=== PATIENT | female | born 1950 | race Caucasian/White ===

== ENCOUNTER → 2018-06-09 | Outpatient (CLI) | payer MEDICAID ==
[~2018-06-09] MED LIST: ADV1DS IH; ALBU17AE3 INH; ASPI-875 PO; B12 IM; CARV12.53 PO; CARV6.252; CINN500C7 PO; CYAN100053 IJ; ESTR0.3T; FURO20TA4 PO; HCT25T PO; HYDR1TAB PO; HYDR50TA3 PO; KCL10CCR; LEVO100T4; LEVO75TA6 PO; LOSA50TA6 PO; LVT.025T PO; METO2.5T; METO25TA2 PO; PITA4TAB2 PO; PNT40TEC PO; POTA10TA36 PO; RANI300T4 PO; RED600TA PO; RLX60T PO; SITA100T PO; SLMFT1E; SPIR50TA27 PO; SPRN25T PO; TORS20TA2 PO; allergy shots INJ
--- NOTE | 2018-06-09 19:04 | Diagnostic Imaging Report ---
INDICATION: Right shoulder pain for three weeks with no known injury. FINDINGS: Three views of the right humerus were obtained which show no fracture, dislocation or other acute bony abnormality. There are mild degenerative changes at the glenohumeral and AC joints. IMPRESSION: No acute abnormality is seen. Dictated by: Dictated on workstation # [id number]
== END ==
LOC: RAD FS 16:22
PROVIDERS: ATTEND Family Medicine
DX: M79.601 Pain in right arm (principal); M25.511 Pain in right shoulder
CPT/HCPCS: 73060

== ENCOUNTER → 2019-02-20 | Outpatient (CLI) | payer MEDICARE, MEDICAID ==
--- NOTE | 2019-02-20 11:54 | Diagnostic Imaging Report ---
Indication: Right ankle pain 3 views the right ankle show soft tissue swelling. No fracture or dislocation. IMPRESSION: Negative right ankle Dictated by: Dictated on workstation # [id number]
--- NOTE | 2019-02-20 11:57 | Diagnostic Imaging Report ---
Indication: Right foot pain 3 views of the right foot show no fracture, dislocation or other acute abnormalities. IMPRESSION: Negative right foot Dictated by: Dictated on workstation # [id number]
== END ==
LOC: RAD FS 11:22
PROVIDERS: ATTEND Nurse Practitioner Family
DX: S99.911A Unspecified injury of right ankle, initial encounter (principal)
CPT/HCPCS: 73610; 73630

== ENCOUNTER 2019-05-19 10:55 | Emergency (ER) | payer MEDICARE, MEDICAID ==
[~2019-05-19] VITALS: Ht 154.9 cm; Wt 131.8 kg
[2019-05-19 11:23] LABS: BACTERIA,URINE MODERATE /HPF; BILIRUBIN,URINE NEGATIVE (NEGATIVE); CLARITY,URINE CLEAR; COLOR,URINE YELLOW; GLUCOSE, URINE (UA) NEGATIVE (NEGATIVE); KETONES,URINE NEGATIVE (NEGATIVE); LEUKOCYTE ESTERASE ,URINE NEGATIVE (NEGATIVE); NITRITE,URINE NEGATIVE (NEGATIVE); PH,URINE 6.5 (5-9); PROTEIN,URINE NEGATIVE (NEGATIVE); WBC,URINE 25-50 /HPF
[2019-05-19 11:24] LABS: SQUAMOUS EPITHELIAL CELL,UR 25-50 /HPF
--- NOTE | 2019-05-19 11:26 | ED General ---
General Stated Complaint: ABD PAIN History of Present Illness Date Seen by Provider: May 19, 2019 Time Seen by Provider: 11:23 Initial Comments Patient presenting to emergency department for evaluation of right flank pain reading towards the right upper and lower abdomen that has been present for the past 3-4 days. Patient says it has been a constant aching pain that can become sharp at times. She says it gets worse with movements and eating. She denies any fever cough shortness of breath chest pain vomiting diarrhea dysuria or hematuria. She does have nausea and constipation with a feeling of rectal pressure. She says she has still had bowel movements the past 2 days however. She has had a cholecystectomy and appendectomy. She says that she has a frequent history of getting diverticulitis and it has never been on the left side and it is only on the right. She said she has had at least 5 times in surgeons have considered taking out part of her bowel on the next flare of diverticulitis. She appears uncomfortable but is nontoxic with normal vital signs. She says she is allergic to multiple pain and nausea medicines but she said she could take Toradol and Zofran. Allergies and Home Medications Allergies Coded Allergies: Amoxicillin (Unverified Allergy, Mild, 07/17/08) Aspirin (Unverified Allergy, Mild, 07/17/08) Butorphanol (Unverified Allergy, Mild, 07/17/08) Cefadroxil (Unverified Allergy, Mild, 07/17/08) Celecoxib (Unverified Allergy, Mild, 07/17/08) Ciprofloxacin (Unverified Allergy, Mild, 07/17/08) Clopidogrel (Unverified Allergy, Mild, 07/17/08) Codeine (Unverified Allergy, Mild, 07/17/08) Diclofenac (Unverified Allergy, Mild, 07/17/08) Erythromycin Base (Unverified Allergy, Mild, 07/17/08) Esomeprazole (Unverified Allergy, Mild, 07/17/08) Influenza Virus Vaccine (Unverified Allergy, Mild, 07/17/08) Levofloxacin (Unverified Allergy, Mild, 07/17/08) Meperidine (Unverified Allergy, Mild, 07/17/08) Misoprostol (Unverified Allergy, Mild, 07/17/08) Morphine (Unverified Allergy, Mild, 07/17/08) Omeprazole (Unverified Allergy, Mild, 07/17/08) Penicillins (Unverified Allergy, Mild, 07/17/08) Pentazocine (Unverified Allergy, Mild, 07/17/08) Prednisone (Unverified Allergy, Mild, 07/17/08) Prochlorperazine (Unverified Allergy, Mild, 07/17/08) Rofecoxib (Unverified Allergy, Mild, 07/17/08) Rosuvastatin (Unverified Allergy, Mild, 07/17/08) Secobarbital (Unverified Allergy, Mild, 07/17/08) Simvastatin (Unverified Allergy, Mild, 07/17/08) Sucralfate (Unverified Allergy, Mild, 07/17/08) Sulfa (Sulfonamides) (Unverified Allergy, Mild, 07/17/08) Sulfamethoxazole (Unverified Allergy, Mild, 07/17/08) Trimethoprim (Unverified Allergy, Mild, 07/17/08) Vancomycin (Unverified Allergy, Mild, 07/17/08) Acetaminophen (Unverified Allergy, Unknown, 12/26/09) Aminophylline (Unverified Allergy, Unknown, 12/26/09) Clavulanic Acid (Unverified Allergy, Unknown, 12/26/09) Diphenhydramine (Unverified Allergy, Unknown, 12/26/09) Dipyridamole (Unverified Allergy, Unknown, 12/26/09) Promethazine (Unverified Allergy, Unknown, 12/26/09) Propoxyphene (Unverified Allergy, Unknown, 12/26/09) Home Medications Albuterol 17 Gm Inh, 2 PUFF INH Q4H PRN for SHORTNESS OF BREATH, (Reported) NEEDED FOR SHORTNESS OF BREATH Aspirin 81 Mg Tablet.dr, 81 MG PO DAILY, (Reported) Cinnamon Bark 500 Mg Capsule, 2 CAP PO BID, (Reported) Cyanocobalamin 1,000 Mcg/Ml Vial, 1,000 MCG IJ MONTHLY, (Reported) Fluticasone/Salmeterol 250 Mcg/50 Mcg Inh, 1 SPRAY IH BID PRN for SHORTNESS OF BREATH, (Reported) NEEDED FOR SHORTNESS OF BREATH Hydrochlorothiazide 50 Mg Tablet, 50 MG PO DAILY, (Reported) Hydrocodone Bit/Acetaminophen 1 Each Tablet, 1 TAB PO Q4H PRN for PAIN, (Reported) NEEDED FOR PAIN 5-500MG TABLET Levothyroxine Sodium 75 Mcg Tablet, 75 MCG PO DAILY, (Reported) Losartan Potassium 50 Mg Tablet, 50 MG PO DAILY, (Reported) Metoprolol Tartrate 25 Mg Tablet, 12.5 MG PO BID, (Reported) TAKES 1/2 (25MG) TABLET TWICE DAILY Pantoprazole Sodium 40 Mg Tablet.dr, 40 MG PO DAILY, (Reported) Pitavastatin Calcium 4 Mg Tablet, 4 MG PO HS, (Reported) Potassium Chloride 10 Meq Tab.prt.sr, 10 MEQ PO DAILY PRN for WHEN TAKING TORSEMIDE, (Reported) NEEDED WHEN TAKING TORSEMIDE Ranitidine Hcl 300 Mg Tablet, 300 MG PO HS, (Reported) Red Yeast Rice 600 Mg Tablet, 2 TAB PO BID, (Reported) Sitagliptin Phosphate 100 Mg Tablet, 100 MG PO DAILY, (Reported) Spironolactone 50 Mg Tablet, 50 MG PO DAILY, (Reported) Torsemide 20 Mg Tablet, 20 MG PO DAILY PRN for SWELLING, (Reported) NEEDED FOR SWELLING PATIENT UNSURE OF STRENGTH [allergy shots] , INJ WEEKLY, (Reported) Patient Home Medication List Home Medication List Reviewed: Yes Review of Systems Review of Systems Constitutional: no symptoms reported EENTM: no symptoms reported Respiratory: no symptoms reported Cardiovascular: no symptoms reported Gastrointestinal: abdominal pain (RUQ and RLQ), constipation, nausea Genitourinary: no symptoms reported Musculoskeletal: back pain Skin: no symptoms reported Psychiatric/Neurological: No Symptoms Reported All Other Systems Reviewed Negative Unless Noted: Yes Past Yhknlzy-Axcsxc-Csyobe Hx Patient Social History Recent Foreign Travel: No Contact w/Someone Who Travel: No Past Medical History Reproductive Disorders: No Physical Exam Vital Signs Vital Signs - First Documented 05/19/19 11:05 Temp 36.7 Pulse 90 Resp 22 B/P (MAP) 179/61 (100) Pulse Ox 98 O2 Delivery Room Air Capillary Refill : Height, Weight, BMI Height: 5'1.00" Weight: 274lbs. oz. 124.998827lq; BMI Method: General Appearance: No Apparent Distress, WD/WN HEENT: PERRL/EOMI Neck: Supple Respiratory: Lungs Clear, No Respiratory Distress Cardiovascular: Regular Rate, Rhythm Gastrointestinal: Soft, Tenderness (RUQ, R lateral ribs) Back: Normal Inspection Extremity: Normal Capillary Refill Neurologic/Psychiatric: Alert, Oriented x3 Skin: Warm/Dry Progress/Results/Core Measures Suspected Sepsis SIRS Temperature: Pulse: Respiratory Rate: Laboratory Tests 05/19/19 11:30: White Blood Count 12.7H Blood Pressure / Mean: Laboratory Tests 05/19/19 11:30: Creatinine 0.68, INR Comment 1.0, Platelet Count 290, Total Bilirubin 0.5 Results/Orders Lab Results Laboratory Tests Test 05/19/19 11:06 05/19/19 11:30 Range/Units Urine Color YELLOW Urine Clarity CLEAR Urine pH 6.5 5-9 Urine Specific [place] 1.025 H 1.016-1.022 Urine Protein NEGATIVE NEGATIVE Urine Glucose (UA) NEGATIVE NEGATIVE Urine Ketones NEGATIVE NEGATIVE Urine Nitrite NEGATIVE NEGATIVE Urine Bilirubin NEGATIVE NEGATIVE Urine Urobilinogen 0.2 < = 1.0 MG/DL Urine Leukocyte Esterase NEGATIVE NEGATIVE Urine RBC (Auto) NEGATIVE NEGATIVE Urine RBC NONE /HPF Urine WBC 25-50 H /HPF Urine Squamous Epithelial Cells 25-50 H /HPF Urine Crystals NONE /LPF Urine Bacteria MODERATE H /HPF Urine Casts NONE /LPF Urine Mucus TRACE /LPF Urine Culture Indicated YES White Blood Count 12.7 H 4.3-11.0 10^3/uL Red Blood Count 4.68 4.35-5.85 10^6/uL Hemoglobin 13.8 11.5-16.0 G/DL Hematocrit 44 35-52 % Mean Corpuscular Volume 94 80-99 FL Mean Corpuscular Hemoglobin 29 25-34 PG Mean Corpuscular Hemoglobin Concent 31 L 32-36 G/DL Red Cell Distribution Width 13.6 10.0-14.5 % Platelet Count 290 130-400 10^3/uL Mean Platelet Volume 11.0 H 7.4-10.4 FL Neutrophils (%) (Auto) 74 42-75 % Lymphocytes (%) (Auto) 16 12-44 % Monocytes (%) (Auto) 8 0-12 % Eosinophils (%) (Auto) 1 0-10 % Basophils (%) (Auto) 1 0-10 % Neutrophils # (Auto) 9.4 H 1.8-7.8 X 10^3 Lymphocytes # (Auto) 2.0 1.0-4.0 X 10^3 Monocytes # (Auto) 1.0 0.0-1.0 X 10^3 Eosinophils # (Auto) 0.1 0.0-0.3 10^3/uL Basophils # (Auto) 0.1 0.0-0.1 10^3/uL Prothrombin Time 13.2 12.2-14.7 SEC INR Comment 1.0 0.8-1.4 Activated Partial Thromboplast Time 25 24-35 SEC Sodium Level 137 135-145 MMOL/L Potassium Level 4.5 3.6-5.0 MMOL/L Chloride Level 101 98-107 MMOL/L Carbon Dioxide Level 23 21-32 MMOL/L Anion Gap 13 5-14 MMOL/L Blood Urea Nitrogen 19 H 7-18 MG/DL Creatinine 0.68 0.60-1.30 MG/DL Estimat Glomerular Filtration Rate > 60 BUN/Creatinine Ratio 28 Glucose Level 207 H 70-105 MG/DL Calcium Level 9.7 8.5-10.1 MG/DL Corrected Calcium 9.6 8.5-10.1 MG/DL Total Bilirubin 0.5 0.1-1.0 MG/DL Aspartate Amino Transf (AST/SGOT) 75 H 5-34 U/L Alanine Aminotransferase (ALT/SGPT) 74 H 0-55 U/L Alkaline Phosphatase 84 40-136 U/L Troponin I < 0.30 <0.30 NG/ML Total Protein 7.6 6.4-8.2 GM/DL Albumin 4.1 3.2-4.5 GM/DL Lipase 34 8-78 U/L My Orders Orders - FAUZIA SUAREZ DO Ua Culture If Indicated (05/19/19 10:58) Cbc With Automated Diff (05/19/19 11:19) Comprehensive Metabolic Panel (05/19/19 11:19) Troponin I Fs (05/19/19 11:19) Lipase (05/19/19 11:19) Partial Thromboplastin Time (05/19/19 11:19) Protime With Inr (05/19/19 11:19) Ketorolac Injection (Toradol Injection) (05/19/19 11:30) Ondansetron Injection (Zofran Injectio (05/19/19 11:30) Urine Culture (05/19/19 11:06) Iohexol Injection (Omnipaque 350 Mg/Ml 1 (05/19/19 12:00) Received Contrast (Hold Metformin- Contr (05/19/19 12:00) Sodium Chloride Flush (Catheter Flush Sy (05/19/19 12:00) Ns (Ivpb) (Sodium Chloride 0.9% Ivpb Bag (05/19/19 12:00) Ct Chest/Abdomen/Pelvis W (05/19/19 11:19) Medications Given in ED Current Medications Medications Dose Ordered Sig/Zaid Route Start Time Stop Time Status Last Admin Dose Admin Iohexol 100 ml ONCE ONCE IV 05/19/19 12:00 05/19/19 12:01 DC 05/19/19 12:19 100 ML Ketorolac Tromethamine 15 mg ONCE ONCE IVP 05/19/19 11:30 05/19/19 11:31 DC 05/19/19 11:38 15 MG Ondansetron HCl 4 mg ONCE ONCE IVP 05/19/19 11:30 05/19/19 11:31 DC 05/19/19 11:38 4 MG Sodium Chloride 10 ml NEEDED PRN IV 05/19/19 12:00 05/19/19 12:19 10 ML Sodium Chloride 100 ml ONCE ONCE IV 05/19/19 12:00 05/19/19 12:01 DC 05/19/19 12:18 80 ML Vital Signs/I&O 05/19/19 11:05 Temp 36.7 Pulse 90 Resp 22 B/P (MAP) 179/61 (100) Pulse Ox 98 O2 Delivery Room Air Capillary Refill : Progress Note : Progress Note Patient's pain seemed to be worse on palpation in her right lateral ribs and upper abdomen. Differential diagnosis is quite wide but given her pain with movement and palpation with normal VS, ACS and PE are considered much less likely. I will check urine labs CT treat symptoms and reassess. Patient's pain improved in the emergency department and her vital signs remained completely normal and her repeat abdominal exam is benign. Her workup came back positive for leukocytosis transaminitis and rectosigmoid diverticulitis. There is no complications on the CT such as perforation or abscess. I told her about the findings and she said she has had diverticulitis in January and March and now again and she thinks this may be the sixth time in the past several years of diverticulitis. I told her that the treatment for diverticulitis is primarily bowel rest and the indication for antibiotics or somewhat questionable as or may not be any benefit from it. I told her she has had this much div erticulitis that she truly needs to see a GI doctor and general surgeon and consider more aggressive management such as a partial colectomy. I told her that there is no admission criteria met at this time given she appears well with normal vital signs benign physical exam and workup. She says that she is falling at right now for GI and that is who wanted to do her colonoscopy but she had many family dynamics they kept her from getting her colonoscopy and proper follow-up. She has a very large number of allergies think at least 50 allergies to medications which I'm sure most of them are not allergies rather they are all side effects. I went through all antibiotic allergies and she says that they're true allergies and she is not willing to take any of the antibiotics that are listed. I told in the case that the only antibiotic I haven't offers Flagyl. I do not think that she needs to be admitted for IV antibiotics. I told her to follow with her GI and PCP within 2-3 days to ensure improvement and I'll prescribe her Flagyl and Zofran and she is to practice bowel rest. Patient aware and agreeable with plan for discharge and verbalized understanding of the need for short-term follow-up and strict ED return precautions discussed worsening pain fevers vomiting or other general concerns. Departure Impression Primary Impression: Abdominal pain Qualified Codes: R10.12 - Left upper quadrant pain Additional Impressions: Diverticulitis of intestine Leukocytosis (leucocytosis) Disposition: 01 HOME, SELF-CARE Condition: Stable Departure-Patient Inst. Referrals: SELF,MITCHELL OVALLES (PCP/Family) Primary Care Physician Patient Instructions: Diverticulitis (DC) Scripts Ondansetron (Ondansetron Odt) 4 Mg Tab.rapdis 4 MG PO TID PRN for NAUSEA/VOMITING-1ST LINE, #14 TAB Prov: FAUZIA SUAREZ DO 05/19/19 Metronidazole (Flagyl) 500 Mg Tablet 500 MG PO TID for 7 Days, TAB Prov: FAUZIA SUAREZ DO 05/19/19 FAUZIA SUAREZ DO May 19, 2019 11:26
[2019-05-19] MEDS ORDERED: KETOROLAC 15 MG/ML VIAL IVP ONE (11:30)
[2019-05-19] MEDS ORDERED: ONDANSETRON 4 MG/2 ML (SDV) Z0FRAN IVP ONE (11:30)
[2019-05-19 11:43] LABS: HEMOGLOBIN 13.8 G/DL (11.5-16.0); MEAN CORPUSCULAR HEMOGLOBIN 29 PG (25-34); WHITE BLOOD COUNT 12.7 10^3/uL (4.3-11.0)
[2019-05-19 11:44] LABS: BASOPHILS # (AUTO) 0.1 10^3/uL (0.0-0.1); BASOPHILS % (AUTO) 1 % (0-10); EOSINOPHILS # (AUTO) 0.1 10^3/uL (0.0-0.3); EOSINOPHILS % (AUTO) 1 % (0-10); HEMATOCRIT 44 % (35-52); LYMPHOCYTES % (AUTO) 16 % (12-44); MEAN CORPUSCULAR HGB CONC 31 G/DL (32-36); MEAN CORPUSCULAR VOLUME 94 FL (80-99); MONOCYTES % (AUTO) 8 % (0-12); NEUTROPHILS # (AUTO) 9.4 X 10^3 (1.8-7.8); NEUTROPHILS % (AUTO) 74 % (42-75); PLATELET COUNT 290 10^3/uL (130-400); RED CELL DISTRIBUTION WIDTH 13.6 % (10.0-14.5)
[2019-05-19 11:53] LABS: PROTHROMBIN TIME PATIENT 13.2 SEC (12.2-14.7)
[2019-05-19 11:59] LABS: CARBON DIOXIDE 23 MMOL/L (21-32); CHLORIDE 101 MMOL/L (98-107); POTASSIUM 4.5 MMOL/L (3.6-5.0); SODIUM 137 MMOL/L (135-145)
[2019-05-19 12:00] LABS: ALANINE AMINOTRANSFERASE 74 U/L (0-55); ALBUMIN 4.1 GM/DL (3.2-4.5); ALKALINE PHOSPHATASE 84 U/L (40-136); BILIRUBIN,TOTAL 0.5 MG/DL (0.1-1.0); BUN/CREATININE RATIO 28; CALCIUM 9.7 MG/DL (8.5-10.1); CREATININE SERUM 0.68 MG/DL (0.60-1.30); GFR ESTIMATED > 60; GLUCOSE 207 MG/DL (70-105); LIPASE 34 U/L (8-78); TOTAL PROTEIN 7.6 GM/DL (6.4-8.2)
[2019-05-19] MEDS ORDERED: IOHEXOL 350 MG/ML 100 ML (OMNIPAQUE 350) VIAL IV ONE (12:00)
[2019-05-19] MEDS ORDERED: CATHETER FLUSH 10 ML SYR IV PRN (12:00)
[2019-05-19] MEDS ORDERED: NS 100 ML (IVPB) BAG IV ONE (12:00)
[2019-05-19] MEDS ORDERED: HOLD METFORMIN - RECEIVED CONTRAST 20 ML VIAL IV SCH (12:00)
--- NOTE | 2019-05-19 12:48 | Diagnostic Imaging Report ---
PROCEDURE: CT chest, abdomen, and pelvis with contrast. TECHNIQUE: Multiple contiguous axial images were obtained through the chest, abdomen, and pelvis after the administration of intravenous contrast. Auto Exposure Controls were utilized during the CT exam to meet ALARA standards for radiation dose reduction. INDICATION: Right flank pain that radiates to right groin. History of skin cancer. COMPARISON: None available. FINDINGS: CT CHEST: Subcentimeter nodule within left thyroid lobe is noted and likely of no clinical significance. No supraclavicular or axillary lymphadenopathy. No mediastinal, hilar or juxtaphrenic lymphadenopathy. Heart is normal in size without pleural effusion. Normal caliber thoracic aorta. No pleural effusion or pneumothorax. Scattered chronic appearing groundglass opacities and atelectasis within the right middle lobe. No pulmonary mass or consolidation. Mild centrilobular and paraseptal emphysema. 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 No acute sternal fracture. No rib fracture on either side. CT ABDOMEN AND PELVIS: No free intraperitoneal air or loculated fluid collection. There is circumferential wall thickening and surrounding inflammation involving the rectosigmoid colon. There are a few diverticula present in this region, and these changes likely reflect acute diverticulitis. No bowel obstruction. No abdominal or pelvic lymphadenopathy. Atherosclerotic aorta is normal in caliber. Diffuse hepatic steatosis is seen. No focal hepatic lesion. Cholecystectomy. No splenic mass. The pancreas and adrenals are normal. Partially exophytic cystic lesion in the upper pole of the right kidney measures 9 x 9 mm. No worrisome focal osseous lesions. IMPRESSION: CHEST: 1. No acute cardiopulmonary process. 2. No acute rib fracture on either side. ABDOMEN AND PELVIS: 1. Rectosigmoid diverticulitis. No perforation or abscess. As patient condition permits, advise further assessment with colonoscopy to exclude underlying rectosigmoid mass lesion. 2. Diffuse hepatic steatosis. Dictated by: Dictated on workstation # [id number]
[2019-05-19] MEDS ORDERED: ONDA4TAB11 PO (13:22)
[2019-05-19] MEDS ORDERED: METR500T PO (13:22)
[2019-05-19 13:31] VITALS: BP 126/40
== END 2019-05-19 13:30 | disposition home or self-care (01) ==
LOC: EDUNIT# 10:55 → ER FS 10:58
DX: K57.32 Diverticulitis of large intestine without perforation or abscess without bleeding (principal); D72.829 Elevated white blood cell count, unspecified; Z90.49 Acquired absence of other specified parts of digestive tract; Z88.1 Allergy status to other antibiotic agents; Z88.6 Allergy status to analgesic agent; Z88.5 Allergy status to narcotic agent; Z88.8 Allergy status to other drugs, medicaments and biological substances; Z88.2 Allergy status to sulfonamides; Z88.0 Allergy status to penicillin; Z79.82 Long term (current) use of aspirin
CPT/HCPCS: 36415; 71260; 74177; 80053; 81000; 83690; 84484; 85025; 85610; 85730; 87077; 87088; 87186

== ENCOUNTER → 2020-12-21 | Outpatient (CLI) | payer MEDICARE, MEDICAID ==
[~2020-12-21] MED LIST changes: +METR500T PO; +ONDA4TAB11 PO
--- NOTE | 2020-12-21 11:23 | Diagnostic Imaging Report ---
Indication: Acute left knee pain. FINDINGS: 3 views. Standing view shows bone on bone appearance in the medial compartment. There is moderate narrowing laterally. Patellofemoral joint shows loss of joint space with considerable hypertrophic change. Hypertrophic changes along the medial femoral condyle and tibial plateau as well. There is considerable soft tissue calcification noted along the medial collateral ligament both along the proximal and distal portions. No bony cortical defects are definitely seen along the femoral condyles or tibial plateau. There is some chondrocalcinosis. IMPRESSION: 1. There is a rather severe tricompartmental arthritic change appearing chronic in nature. No acute abnormalities are noted. 2. Soft tissue calcification along the medial collateral ligament likely from old trauma. Dictated by: Dictated on workstation # [id number]
--- NOTE | 2020-12-21 13:18 | Diagnostic Imaging Report ---
INDICATION: Cervical radiculopathy and pain COMPARISON: CT from 06/12/2013 TECHNIQUE: 4 views of the cervical spine FINDINGS: There is markedly exaggerated kyphosis of the upper thoracic spine with compensatory exaggerated lordosis of the cervical spine which results in suboptimal evaluation with multiple overlapping structures. The cervical spine is visible down to the C5 level on the lateral view. The C1-C2 alignment appears normal. There is marked multilevel facet arthropathy throughout the cervical spine. There is no spondylolisthesis. Vertebral body heights are preserved. No acute fracture is identified. There is diffuse osteopenia. There is a compression deformity of the T5 vertebral level which is chronic. A thoracic spinal cord stimulator lead is noted. IMPRESSION: 1. Exaggerated cervical lordosis and thoracic kyphosis with marked facet arthropathy in the cervical spine. No acute fracture is seen. 2. Chronic T5 compression deformity. Dictated by: Dictated on workstation # [id number]
== END ==
LOC: RAD FS 10:55
PROVIDERS: ATTEND Family Medicine
DX: M47.22 Other spondylosis with radiculopathy, cervical region (principal); M17.12 Unilateral primary osteoarthritis, left knee; M43.8X2 Other specified deforming dorsopathies, cervical region; M40.294 Other kyphosis, thoracic region; M40.40 Postural lordosis, site unspecified
CPT/HCPCS: 72040; 73562

== ENCOUNTER 2021-01-23 12:15 | Emergency (ER) | payer MEDICARE, MEDICAID ==
[~2021-01-23] VITALS: Ht 154 cm; Wt 129.0 kg
--- OUTSIDE RECORDS SUMMARY | 2021-01-23 12:22 | XMS REPORT | Clinical Summary ---
Author Author [facility] Organization [facility] Address Unknown Phone Unavailable Care Team Providers [employer] Driver Name Role Phone PCP Unavailable Allergies Not on File Medications Not on file Active Problems Not on file Social History Date Tobacco Use Types Packs/Day Years Used Never Assessed Sex Assigned at Date Recorded Not on file Last Filed Vital Signs Not on file Plan of Treatment Not on file Results Not on filefrom Last 3 Months
--- OUTSIDE RECORDS SUMMARY | 2021-01-23 12:23 | XMS REPORT | Encounter Summary ---
Author Author [facility] Organization [facility] Address Unknown Phone Unavailable Care Team Providers Care Gambling Floor Supervisor Name Role Phone Jaiden Husain MD Unavailable Unavailable Fouzia Gutiérrez MD Unavailable Doctor, Miscellaneous Unavailable Unavailable Shiva Collado MD Unavailable Dread Rasmussen MD Unavailable Radha Orlando MD Unavailable Jeffery East MD Unavailable Unavailable Jabari Lyman MD Unavailable Adore Hays MD Unavailable Sy Rajput MD Unavailable Lico Partida MD Unavailable Teresa Aranda OD Unavailable Manjula Hughes RN Unavailable Unavailable Farhan Rose MD Unavailable Perez Urrutia MD Unavailable Danyell Lam APRN-CHEMIST WATER PURIFICATION Unavailable [phone] Olvin Plata MD Unavailable Emergency, Nurse RN Unavailable Unavailable Andrew Goodson MD Unavailable Scout Monroy MD Unavailable Pratik Husain MD Unavailable Sol Peterson GEAR TOOTH LAPPING MACHINE OPERATOR Unavailable Unavailable Lamine Oliva MD Unavailable Stephanie Kaiser MD Unavailable Emilie Holloway RN Unavailable Unavailable Meaghan Oreilly RN Unavailable Unavailable Karolina Steven TEACHER [employer] [facility]IFICATION Unavailable [phone] William Leach MD PCP Reason for Visit * Reason Comments GI Problem Encounter Details Care Team Description Date Type Department Jackson Kowalski MD [address] Ortho[facility] [address] [place], [place] [id number] Chronic constipation (Primary Dx); Diverticulitis 12/06/2020 [facility] [address] [place] [address] Social History Date Tobacco Use Types Packs/Day Years Used Never Smoker Smokeless Tobacco: Never Used Comments Alcohol Use Standard Drinks/Week Never 0 (1 standard drink = 0.6 o z pure alcohol) Alcohol Habits Answer Date Recorded How often do you have a drink containing alcohol? Never 06/26/2019 How many drinks containing alcohol do you have on No t asked a typical day when you are drinking? How often do you have six or more drinks on one Not asked occasion? Comment: Not asked Sex Assigned at Date Recorded Female 07/27/2019 9:28 AM CDT Date Recorded COVID-19 Exposure Response 12/06/2020 1:47 PM CDT In the last month, have you been in contact with No / Unsure someone who was confirmed or suspected to have Coronavirus / COVID-19? documented as of this encounter Last Filed Vital Signs Reading Time Taken Comments Vital Sign 140/46 12/06/2020 2:04 PM CDT Blood Pressure 69 12/06/2020 1:53 PM CDT Pulse 36.1 C (97 F) 12/06/2020 1:53 PM CDT Temperature 16 12/06/2020 1:53 PM CDT Respiratory Rate 100% 12/06/2020 1:53 PM CDT 2 liters Oxygen Saturation - - Inhaled Oxygen Concentration 130.6 kg (287 lb 14.4 oz) 12/06/2020 1:53 PM CDT Weight 154.9 cm (5' 0.98") 12/06/2020 1:53 PM CDT Height 54.43 12/06/2020 1:53 PM CDT Body Mass Index documented in this encounter Functional Status Date of Assessment Functional Status Response 01/28/2020 Does the patient have a hearing impairment: No 09/25/2019 Does the patient have a visual impairment: No 09/25/2019 Does the patient have impaired ambulation: No 09/25/2019 Does the patient have an activity of daily living No (ADL) impairment: 09/25/2019 Does the patient have an instrumental activity of No daily living (IADL) impairment: Date of Assessment Cognitive Status Response 09/25/2019 Does the patient have a cognitive impairment: No documented as of this encounter Patient Instructions * Patient Instructions* Jackson Kowalski MD - 12/06/2020 1:00 PM CDT If you have internet access/ smartphone please contact me through [employer]. This is our preferred method of contact and the most efficient way to contact your [facility] team. If you do not have internet access/smartphone you can call at . Please do not leave multiple voicemail's for us, leaving multiple voi cemail's delays us getting back to you quicker. As part of the CARES act, starting June 30 2020, some results are released to you automatically. Your provider will continue to send you a detailed result not e on any labs that they order, but with these changes you may see your results b efore they do. Critical lab results will be addressed immediately, but otherwise please give your provider 72 hours (3 business days) to view and respond to your results before reaching out with any questions. Depending on your questions, bri kline may ask you to schedule a telehealth or telephone visit to discuss further. This visit may be billed to your insurance depending on time and complexity. Please follow up in as neded. General Instructions: To have a medication refilled: Please use the [employer] Refill request or cont act your pharmacy directly to request medication refills. Please allow 72 hours . Trouble getting medication: There are medication savings cards available for mos t drugs that we prescribe. We do not carry every savings card and some are only available through the website of the medication. If you want a savings card plea se go to the website of that certain medication. If you have trouble getting jesus e of the medication please try www.[email or web address] (ph. ) or [employer] (ph. ). My Chart: Please sign up for [employer] if you already haven't. [employer] is a gre at way to communicate with your physician and nurse; also to look up test result s and when your next appointments are. There is an anya for your phone also. I am available through [employer] for faster replies. How to receive your test results: If you have signed up for [employer], you yola l receive your test results and messages from me this way. Otherwise, you will get a phone call or letter. If you are expecting results and have not heard fr om my office within 2 weeks of your testing, please send a [employer] message or ca ll my office. If you do not have My Chart you will either receive a letter in th e mail or a phone call. [facility] Office [facility] is on the 1st floor. It is open from 6:30 am-7 pm on Mondays , 7 am-6pm Saturday-Saturday, 7 am - Noon on Saturdays. [facility] is located on the 2nd floor and is open 8 am-5 pm Saturday- y Radiology is on the 2nd floor of the Medical Office [facility] and the 2nd Floo r of [facility]. Radiology Scheduling can be reached at To Schedule office visits: Call [phone]. For procedure scheduling questions at the [facility] please call [phone] option #2 for scheduling the procedure; for a procedure at [facility] ple ase call or ; for a procedure at [facility] pleas e call . To receive appointment reminders on your cell phone: Make sure we have your c Xyle[employer] phone number, and Text [facility] to [phone]. Driving Directions call: [phone]. Support for many chronic illnesses is available through [employer]: turnin [facility]point[facility][email or web address] or 385-974-5655. Billing: We are transitioning to new billing practices; if you have any quest ions about your bill please call Patient Financial Services phone line: [phone] or [phone], Saturday-Saturday, 8:30a.m. - 4:30 p.m. For urgent questions on nights, weekends or holidays, call the [employer] Letter [employer] at [phone], and ask for the doctor workers compensation claims adjuster for Gastroenterology. Call 911 for any e mergencies. Urgent Care clinics: [facility] Weekdays, 5:309 p.m Weekends, 9 a.m.1 p.m. [address] [place] [address] [facility] Urgent Care Weekdays, 9 a.m.9 p.m. Weekends, 8 a.m.4 p.m. [address] [place] [address] [facility] Weekdays, 59 p.m. Weekends, 8 a.m.4 p.m. [address] [facility], [address] [place], [place] [id number] [facility] Urgent Care Weekdays, 10 a.m.6:30 p.m. Satur, 10 a.m.2 p.m. [address] [facility] [place] [address] Entrance on [facility], next to [employer] [phone] [facility]gent Care Weekdays, 8 a.m.7 p.m. Closed on weekends/holidays [address] [facility] [place] [address] [facility] Care Weekdays, 7 a.m.4 p.m. Closed on weekends/holidays [address] [facility] Located in the [facility] [phone] Reading Material: Please read The Gut Balance Revolution by Lawrence Nielsen MD. ISBN 978-1-70440 -401-4 and/ or The Inside Tract by Lawrence Nielsen MD. ISBN 978-0095398211. Carlos dia may purchase these books off of [employer]. documented in this encounter Progress Notes * Jackson Kowalski MD - 12/06/2020 1:00 PM CDT Date of Service: 12/06/2020 Subjective: Arina Escobar (Becky) is a 69 y.o. female. History of Present Illness 69-year-old white female with a history of class III obesity, several episodes o f uncomplicated diverticulitis, colon polyps, strokes, type 2 diabetes, COPD on oxygen, appendectomy, Marcelo fundoplication for GERD, cholecystectomy here for f ollow-up regarding recurrent episodes of acute uncomplicated diverticulitis. Oir ndiaye has not had any reminiscent symptoms in the interval since last visit in May 2020. At that time she was placed on fiber capsules as she cannot tolerate the fiber powder. She is having 3-4 soft formed bowel movements per day usually af ter meals with some amount of urgency but no incontinence. If she does not take the fiber then she ends up on the constipated side. She does not wish to get t he Covid vaccine. Past endoscopy: Colonoscopy 2019: Normal terminal ileum, many diverticula were found in the s igmoid colon, nonbleeding external hemorrhoids. Biopsies for microscopic coliti s were normal. Review of Systems Constitutional: Positive for fatigue. HENT: Positive for postnasal drip and rhinorrhea. Eyes: Negative. Respiratory: Positive for shortness of breath. Cardiovascular: Positive for leg swelling. Gastrointestinal: Negative. Endocrine: Negative. Genitourinary: Positive for enuresis and frequency. Musculoskeletal: Positive for arthralgias, back pain, joint swelling and myalgia s. Skin: Positive for wound. Allergic/Immunologic: Negative. Neurological: Positive for weakness and numbness. Hematological: Negative. Psychiatric/Behavioral: Positive for sleep disturbance. All other systems reviewed and are negative. Objective: acetaminophen (TYLENOL) 325 mg tablet Take 325-650 mg by mouth every 4 hours as needed for Pain. amLODIPine (NORVASC) 10 mg tablet TAKE 1 TABLET BY MOUTH DAILY aspirin EC 81 mg tablet Take 81 mg by mouth every morning. azelastine (ASTELIN) 137 mcg (0.1 %) nasal spray Apply two sprays to each no stril as directed twice daily. Use in each nostril as directed Indications: sea camilo runny nose calcium citrate (CALCITRATE) 950 mg tab Take two tablets by mouth twice matthias y. CAREFINE PEN NEEDLE 32 gauge x 1/4" ndle TO USE WITH INSULIN PENS QID diclofenac(+) (VOLTAREN) 1 % topical gel Apply 4 g topically to affected are a four times daily. doxazosin (CARDURA) 2 mg tablet Take two tablets by mouth at bedtime daily. fenofibrate nanocrystallized (TRICOR) 145 mg tablet Take 145 mg by mouth aurelio ly. Take with food. gabapentin (NEURONTIN) 300 mg capsule Take one capsule by mouth three times daily. Indications: neuropathic pain glimepiride (AMARYL) 4 mg tablet Take 4 mg by mouth daily with breakfast. ibuprofen (MOTRIN) 800 mg tablet Take one tablet by mouth every 6 hours as n eeded for Pain. Take with food. Indications: Pain insulin aspart (NOVOLOG) 100 unit/mL flexPEN Inject 5 Units under the skin t hree times daily with meals. Takes per sliding scale prior to meals up to three times daily ipratropium bromide (ATROVENT) 0.02 % nebulizer solution Inhale 2.5 mL by mo ut into the lungs every 6 hours as needed for Shortness of Breath or Wheezing. ketoconazole (NIZORAL) 2 % topical cream Apply topically to affected area t wice daily. levalbuterol tartrate(+) (XOPENEX HFA) 45 mcg/actuation inhaler Inhale two p uffs by mouth into the lungs every 4-6 hours as needed for Wheezing or Shortness of Breath. levothyroxine (SYNTHROID) 88 mcg tablet Take 88 mcg by mouth daily 30 minute s before breakfast. losartan (COZAAR) 50 mg tablet TAKE 1 TABLET BY MOUTH TWICE DAILY metOLazone (ZAROXOLYN) 5 mg tablet Take one tablet by mouth daily as needed. Weight yourelf daily. Please take 1 tablet metolazone if you notice a 3 lb weig ht gain in 24 hours or 5 lb weight gain in one week. ONETOUCH VERIO test strip TEST BID other medication Inject 2 Doses under the skin every 7 days. 2 shots one day per week (usually go on Saturday or ) - contact clinic at [phone] or [phone] (PROTONIX) 40 mg tablet TAKE 1 TABLET BY MOUTH DAILY polycarbophil (FIBERCON) 625 mg tablet Take two tablets by mouth twice daily . potassium chloride (KLOR-CON) 10 mEq tablet Take one tablet by mouth daily. If for any reason you do not take torsemide, do not take potassium. Take with a meal and a full glass of water. spironolactone (ALDACTONE) 25 mg tablet Take one-half tablet by mouth daily. Take with food. torsemide (DEMADEX) 20 mg tablet Take one-half tablet by mouth daily. TAKE E VERY DAY turmeric root extract 500 mg cap Take 1 capsule by mouth twice daily. VENTOLIN HFA 90 mcg/actuation inhaler Inhale 2 puffs by mouth into the lungs every 4 hours as needed. There were no vitals filed for this visit. There is no height or weight on file to calculate BMI. Physical Exam General: Obese on oxygen Constitutional: Oriented to person, place, and time. Head: Normocephalic and atraumatic. Eyes: EOM are normal. Pupils are equal, round, and reactive to light. No sclera l icterus. Neck: Normal range of motion. Neck supple. Cardiovascular: Normal rate and regular rhythm. Pulmonary/Chest: Effort normal and breath sounds normal. Abdominal: Soft. Bowel sounds are normal. No distension. There is no tenderness. Musculoskeletal: Normal range of motion. Neurological: Alert and oriented to person, place, and time. Skin: Skin is warm and dry. Nursing note and vitals reviewed. Assessment and Plan: 69-year-old white female with a history of class III obesity, several episodes o f uncomplicated diverticulitis, colon polyps, strokes, type 2 diabetes, COPD on oxygen, appendectomy, Marcelo fundoplication for GERD, cholecystectomy here for f ollow-up regarding recurrent episodes of acute uncomplicated diverticulitis. Continue with fiber supplementation I discussed with her the importance of getting Covid vaccination and relative safety of it. She is especially high risk given obesity, multiple medical prob lems and oxygen supplementation dependency. She declines. She would be due for repeat colonoscopy 2024 per recommendation from last 1 i n 2019 at which time she was found to have no polyps and excellent bowel prep. Given her comorbidities I recommend against repeat screening colonoscopy. Follow-up as needed Jackson Kowalski MD Gastroenterology Staff documented in this encounter Plan of Treatment Not on filedocumented as of this encounter Goals Goal Patient Associated Recent Progress Patient-Stat Aut hor Goal Type Problems ed? GOAL General No Christina Braswell, RN Note: Not to come back [facility] No Angeles Pyle, RN documented as of this encounter Visit Diagnoses Diagnosis Chronic constipation - Primary Unspecified constipation Diverticulitis Diverticulitis of colon (without mentio n of hemorrhage) documented in this encounter Additional Health Concerns Assessment Noted Time PHQ-2 Depression Total Score: 0 12/06/2020 1:52 PM CDT documented as of this encounter
--- OUTSIDE RECORDS SUMMARY | 2021-01-23 12:23 | XMS REPORT | Clinical Summary ---
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 [id number] Wire Wire Description:GAYLE WITH NEVRO HERE; 2 LEADS PLACED WITH tRIAL lEAD kIT tlead 1058-70b, lOT [id number], (2 WIRES) SAME LOT NUMBERS [id number] / [id number] / [id number] Kit Lead [place] N300 N/A: Back UNIDENTIFI Implanted: Qty: 1 on 07/08/2015 by Pratik Wilson MD at [facility] [id number] / [id number] / [id number] Blue Perc Lead Kit N/A: Back UNIDENTIFI Implanted: Qty: 1 on 07/08/2015 by Pratik Wilson MD at [facility] [id number] / [id number] / [id number] Blue Perc Lead Kit N/A: Back UNIDENTIFI Implanted: Qty: 1 on 07/08/2015 by Pratik Wilson MD at [facility] [id number] / [id number] / [id number] Ipg Kit N/A: Back NEVRO Implanted: Qty: 1 on 07/08/2015 by CORPORATIO Pratik Husain MD at [facility] [id number] / [id number] / [id number] Patient Remote Kit UNIDENTIFI Implanted: Qty: 1 on 07/08/2015 by Pratik Wilson MD at [facility] Procedures Comments Procedure Name Priority Date/Time Associated Diag nosis HC LVL IV SRG PTH, GROSS Routine 11/25/2020 Neopl asm of uncertain & MICRO 12:00 AM CDT behavior HC COMPREHENSIVE Routine 10/26/2020 Postmenopausa l METABOLIC PANEL 4:39 PM CDT osteoporosis HC TSH SCREEN Routine 10/26/2020 Postmenopausal 4:39 PM CDT osteoporosis HC 25-OH VITAMIN D Routine 10/26/2020 Postmenopau guille 4:39 PM CDT osteoporosis BONE DENSITY SPINE/HIP Routine 10/26/2020 Postmen opausal from Last 3 Months Results * PATHOLOGY SURGICAL < 5 SPECIMENS (11/25/2020 12:00 AM CDT) PATHOLOGY [facility] [employer] [email or web address] Department of Pathology and Laboratory Medicine [address] [place] [id number] Surgical Pathology Office: [phone] SURGICAL PATHOLOGY REPORT NAME: VERONIKA REESE SURG PATH #: [id number] MR #: [id number] SPECIMEN CLASS: SR BILLING #: [id number] ALT ID #: LOCATION: [id number] DATE OF PROCEDURE: 11/25/2020 AGE: 69 SEX: F DATE RECEIVED: 11/25/2020 : 1950 TIME RECEIVED: 12:28 PHYSICIAN: DALY ADHIKARI MD,PHD DATE OF REPORT: 11/28/2020 COPY TO: HEATHER HENDRICKSON MD DATE OF PRINTIN11/28/2020 ############################## ############################## ############ Final Diagnosis: A. Right forearm: -- Benign lichenoid keratosis, traumatized Attestation: By this signature, I attest that I have personally formulated the final interpretation expressed in this report and that the above diagnosis is based upon my examination of the slides and/or other material indicated in this report. 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 Gross Description: A. Received in zinc formalin, labeled "right forearm" is a 1.0 x 0.8 x 0.1 cm shave, trisected, all in A1. bk/11/25/2020 Specimen Other (Specify) Performing Organization Address City/State/ZIP Code P araceli Number [facility] [address] [place] [address] * TSH WITH FREE T4 REFLEX (10/26/2020 4:39 PM CDT) TSH 3.38 0.35 - 5.00 MCU/ML [facility] Specimen Blood Performing Organization Address City/[facility]/ZIP Code P araceli Number [facility] [address] [place] [address] * 25-OH VITAMIN D (D2 + D3) (10/26/2020 4:39 PM CDT) Vitamin >99.0 (H) 30 - 80 NG/ML [facility] D(25-OH)Total Specimen Blood Performing Organization Address City/[facility] P araceli Number [facility] [address] [place] [address] * COMPREHENSIVE METABOLIC PANEL (10/26/2020 4:39 PM CDT) Sodium 141 137 - 147 MMOL/L [facility] Potassium 4.4 3.5 - 5.1 MMOL/L [facility] Chloride 105 98 - 110 MMOL/L [facility] Glucose 102 (H) 70 - 100 MG/DL [facility] Blood Urea 29 (H) 7 - 25 MG/DL [facility] Nitrogen Creatinine 0.86 0.4 - 1.00 MG/DL [facility] Calcium 10.0 8.5 - 10.6 MG/DL [facility] Total Protein 7.7 6.0 - 8.0 G/DL [facility] Total Bilirubin 0.5 0.3 - 1.2 MG/DL [facility] Albumin 4.5 3.5 - 5.0 G/DL [facility] Alk Phosphatase 46 25 - 110 U/L [facility] AST (SGOT) 25 7 - 40 U/L [facility] CO2 22 21 - 30 MMOL/L [facility] ALT (SGPT) 26 7 - 56 U/L [facility] Anion Gap 14 (H) 3 - 12 [facility] eGFR Non >60 >60 mL/min [facility] Comment: [place] The eGFR is not validated f or use in drug dosing adjustments. Continue to use estimated creatinine clearance per dosing reference text. Please contact the Clinical Pharmacist for questions. eGFR >60 >60 mL/min [facility] [place] Comment: The eGFR is not validated for use in drug dosing adjustments. Continue to use estimated creatinine clearance per dosing reference text. Please contact the Clinical Pharmacist for questions. Specimen Blood Performing Organization Address City/State/ZIP Code P araceli Number [facility] [address] [place] [address] * BONE DENSITY SPINE/HIP (10/26/2020) Narrative Performed At This result has an attachment that is n ot available. 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 01/02/2020 6:08 AM Full Code 01/01/2020 7:58 PM Provider has discussed Code Status No, more discussi on w/Patient or Family? needed 08/21/2019 3:46 PM Full Code 08/18/2019 10:05 AM Provider has discussed Code Status No, more discussi on w/Patient or Family? needed 03/15/2019 4:17 PM Full Code 03/14/2019 10:47 PM Provider has discussed Code Status Yes w/Patient or Family? 10/07/2015 8:00 PM Full Code 10/07/2015 2:42 PM Provider has discussed Code Status No, discussion no t w/Patient or Family? necessary based on Dx
--- OUTSIDE RECORDS SUMMARY | 2021-01-23 12:23 | XMS REPORT | Encounter Summary ---
Author Author [facility] Organization [facility] Address Unknown Phone Unavailable Care Team Providers Care Milk Route Deliverer Name Role Phone Jaiden Husain MD Unavailable [...] Unavailable Perez Urrutia MD Unavailable Danyell Lam APRN-ELECTRONICS INSPECTOR Unavailable [phone] Olvin Plata MD Unavailable Emergency, Nurse RN Unavailable Unavailable Andrew Goodson MD Unavailable Scout Monroy MD Unavailable Pratik Husain MD Unavailable Lavinianarciso Osbaldofreddy Villegas ENVIRONMENTAL STUDIES FACULTY MEMBER Unavailable Unavailable Lamine Oliva MD Unavailable Stephanie Kaiser MD Unavailable Emilie Holloway RN Unavailable Unavailable Meaghan Oreilly RN Unavailable Unavailable Karolina Steven CHARGEMASTER SPECIALIST-ELECTRONICS INSPECTOR Unavailable [phone] William Leach MD PCP Encounter Details Care Team Description Date Type Department 11/25/2020 Travel Social History Date Tobacco Use Types Packs/Day [...] AM CDT Date Recorded COVID-19 Exposure Response 11/25/2020 10:55 AM CDT In the last month, have you been in contact with No / Unsure someone who was confirmed or suspected to have Coronavirus / COVID-19? documented as of this encounter Functional Status Date of Assessment [...] impairment: No documented as of this encounter Plan of Treatment Not on filedocumented as of this encounter Goals Goal Patient Associated Recent Progress Patient-Stat Aut hor Goal Type Problems ed? GOAL General No Christina Braswell, RN Note: Not to come back [facility] No Angeles Pyle, RN documented as of this encounter Visit Diagnoses Not on filedocumented in this encounter Additional Health Concerns Assessment Noted Time PHQ-2 Depression Total Score: 0 06/27/2020 1:08 PM CDT documented as of this encounter
--- OUTSIDE RECORDS SUMMARY | 2021-01-23 12:23 | XMS REPORT | Encounter Summary ---
Author Author [facility] Organization [facility] Address Unknown Phone Unavailable Care Team Providers Care Neonatologist Name Role Phone Jaiden Husain MD Unavailable [...] Unavailable Perez Urrutia MD Unavailable Danyell Lam APRN-ANIMAL REHABILITATOR Unavailable [phone] Olvin Plata MD Unavailable Emergency, Nurse RN Unavailable Unavailable Andrew Goodson MD Unavailable Scout Monroy MD Unavailable Pratik Husain MD Unavailable Lavinianarciso Osbaldofreddy Villegas RESEARCH LABORATORY SPECIALIST Unavailable Unavailable Lamine Oliva MD Unavailable Stephanie Kaiser MD Unavailable Emilie Holloway RN Unavailable Unavailable Meaghan Oreilly RN Unavailable Unavailable Karolina Steven HAND SPLITTER-ANIMAL REHABILITATOR Unavailable [phone] William Leach MD PCP Encounter Details Care Team Description Date Type Department 12/06/2020 Travel Social History Date Tobacco Use Types [...] Braswell, RN Note: Not to come back [facility] No Angeles Pyle, RN documented as of this encounter Visit Diagnoses Not on filedocumented in this encounter Additional Health Concerns Assessment Noted Time PHQ-2 Depression Total Score: 0 12/06/2020 1:52 PM CDT documented as of this encounter
--- OUTSIDE RECORDS SUMMARY | 2021-01-23 12:23 | XMS REPORT | Encounter Summary ---
Author Author [facility] Organization [facility] Address Unknown Phone Unavailable Care Team Providers Care German Teacher Name Role Phone Jaiden Husain MD Unavailable [...] Unavailable Perez Urrutia MD Unavailable Danyell Lam APRN-COLD ROLLING MACHINE SETTER Unavailable [phone] Olvin Plata MD Unavailable Emergency, Nurse RN Unavailable Unavailable Andrew Goodson MD Unavailable Scout Monroy MD Unavailable Pratik Husain MD Unavailable Kristen Osbaldofreddy Villegas SECURITY CHECKER Unavailable Unavailable Lamine Oliva MD Unavailable Stephanie Kaiser MD Unavailable Emilie Holloway RN Unavailable Unavailable Meaghan Oreilly RN Unavailable Unavailable Karolina Steven STARCH TREATING ASSISTANT-COLD ROLLING MACHINE SETTER Unavailable [phone] William Leach MD PCP Reason for Visit * Reason Comments Skin Problem Encounter Details Care Team Description Date Type Department Daly Adhikari MD [address] [facility] [address] [place] [address] Neoplasm of uncertain behavior (Primary Dx); Actinic keratosis; History of nonmelanoma skin cancer; Seborrheic keratosis; Multiple benign nevi; Intertrigo 11/25/2020 Office Visit Dermatology: [facility] [address] [place] [address] Social History Date Tobacco Use Types Packs/Day [...] Signs Reading Time Taken Comments Vital Sign - - Blood Pressure - - Pulse - - Temperature - - Respiratory Rate - - Oxygen Saturation - - Inhaled Oxygen Concentration 132 kg (291 lb) 11/25/2020 10:59 AM CDT Weight 155.7 cm (5' 1.3") 11/25/2020 10:59 AM CDT Height 54.45 11/25/2020 10:59 AM CDT Body Mass Index documented in this [...] this encounter Patient Instructions * Patient Instructions* Heather [place]rickson MD - 11/25/2020 11:00 AM CDT Vitamin D - We recommend Vitamin D supplementation after a fatty meal, especially if there is no contraindications such as kidney stones Moles --Common melanocytic nevi (moles) tend to be =6 mm in diameter and symmetric wit h even pigmentation, round or oval shape, regular outline, and sharp, non-fuzzy border. --Dermal nevi stick out from the skin, but if they are soft they are usually not worrisome. --Flaky seemingly stuck-on brown bumps are usually benign keratoses, not moles. --Bright red smooth bumps that do not bleed are usually benign blood vessel lesi ons (acosta angiomas), not moles. --Atypical nevi/clinical features of possible melanoma include asymmetry, border irregularities, color variability, and diameter >6 mm. The earliest sign of melanoma is usually a rapidly growing mole. --About half of melanoma arises in an existing mole and up to half on normal ski n. --It is normal to get new moles until the age of 30-40 years old. --Multiple atypical nevi are a marker of increased risk of melanoma. The risk of melanoma depends also upon the total number of nevi, family and/or personal his tory of melanoma, and sun exposure history. --It is important to look at your moles once a month. It may help to follow the m with photos such as on your smart phone. Looking once a month you can notice rapid changes and call if these occur. --Using sunscreens and sun avoidance will decrease your risk of developing melan dave. The best sun protection is sun avoidance, including with clothing such as long sleeves and a broad brimmed hat. The best sunscreens are SPF 30 or above c ream based with zinc oxide. One ounce (shot glass sized) amount is needed for a n adult. It should be reapplied every 2 hours if possible. --Any tanning bed use will increase your risk of melanoma significantly. Sun Protection " UPF/SPF rated clothing (gloves, long sleeves, scarves); broad-brimmed hats (NO T ball caps!) " RIT Sunguard laundry additive can increase the SPF value of your everyday clot yeimi " Cowboy hats protect from sun; baseball hats don't " Here are several recommended zinc-based sunscreen brands in aplphabetical orde r (always read the ingredient list, as many brands have multiple varieties of barry nscreens and not all are zinc-based) " Ines, Bare Minerals, Blue Lizard, CeraVe, Cotz, [employer] Garden, Green Screen , [employer], Mineral Fusion, SkinCeuticals, Vanicream " 2 shot-glases = whole body Melanoma Patient Information Also called malignant melanoma Skin cancer screening: If you notice a mole that differs from others or one that changes, bleeds, or itches, see a cake inspector. Melanoma is a type of skin cancer. Anyone can get melanoma. When found early and treated, the cure rate is nearly 100%. Allowed to grow, melanoma can spread to other parts of the body. Melanoma can spread quickly. When melanoma spreads, it can be deadly.Dermatologists believe that the number of deaths from melanoma wou ld be much lower if people: Knew the warning signs of melanoma. [place] how to examine their skin for signs of skin cancer. Took the time to examine their skin. It's important to take time to look at the moles on your skin because this is a good way to find melanoma early. When checking your skin, you should look for th e ABCDEs of melanoma. ABCDE's of melanoma: When performing monthly skin exams for your moles or new moles, remember the ABC DE's of melanoma: A - Asymmetry. (Concerning if spot is not symmetric) B - Border. (Irregular border or notched border are concerning) C - Color. (Multiple colors or changes in color are concerning.) D - Diameter. (Larger than 6mm, ie, a pencil eraser, is concerning.) E - Evolution. (An evolving or changing spot is concerning. If new itch, tendern ess, or bleeding develop, these are concerning changes too. See further explanation below: Melanoma: Signs and symptoms Anyone can get melanoma. It's important to take time to look at the moles on you r skin because this is a good way to find melanoma early. When checking your ski n, you should look for the ABCDEs of melanoma. ABCDEs of melanoma A = Asymmetry One half is unlike the other half. B = Border An irregular, scalloped, or poorly defined border. C = Color Is varied from one area to another; has shades of isaac, brown or black, or is jesus etimes white, red, or blue. D = Diameter Melanomas usually greater than 6mm (the size of a pencil eraser) when diagnosed, but they can be smaller. E = Evolving A mole or skin lesion that looks different from the rest or is changing in size, shape, or color. !! If you see a mole or new spot on your skin that has any of the ABCDEs, immedi ately make an appointment to see a cake inspector. Signs of melanoma The most common early signs (what you see) of melanoma are: Growing mole on your skin. Unusual looking mole on your skin or a mole that does not look like any other mo le on your skin (the ugly duckling). Non-uniform mole (has an odd shape, uneven or uncertain border, different colors ). Symptoms of melanoma In the early stages, melanoma may not cause any symptoms (what you feel). But so metimes melanoma will: Itch. Bleed. Feel painful. Many melanomas have these signs and symptoms, but not all. There are different t ypes of melanoma. One type can first appear as a brown or black streak underneat h a fingernail or toenail. Melanoma also can look like a bruise that just won't heal. Who gets melanoma? Anyone can get melanoma. Most people who get it have light skin, but people who have brown and black skin also get melanoma. Some people have a higher risk of getting melanoma. These people have the follow ing traits: Skin Fair skin (The risk is higher if the person also has red or blond hair and blue or green eyes). Sun-sensitive skin (rarely tans or carrera easily). 50-plus moles, large moles, or unusual-looking moles. If you have had bad sunburns or spent time tanning (sun, tanning beds, or sun l amps), you also have a higher risk of getting melanoma. Men older than 50 are at a higher risk for developing skin cancers, including m elanoma. Learning how to check your skin and getting skin exams can help detect skin cancer. Family/medical history Melanoma runs in the family (parent, child, sibling, cousin, aunt, uncle had kirstie anoma). You had another skin cancer, but most especially another melanoma. A weakened immune system. Research shows that indoor tanning increases a person's melanoma risk by 75%. Th e risk also may increase if you had breast or thyroid cancer. More people getting melanoma Fewer people are getting most types of cancer. Melanoma is different. More peopl e are getting melanoma. Many are white men who are 50 years or older. More young people also are getting melanoma. Melanoma is now the most common cancer among people 25-29 years old. Even teenagers are getting melanoma. What causes melanoma? Ultraviolet (UV) radiation is a major contributor in most cases. We get UV radia tion from the sun, tanning beds, and sun lamps. Heredity also plays a role. [facility] shows that if a close blood relative (parent, child, sibling, aunt, uncle) had melanoma, a person has a much greater risk of getting melanoma. How do dermatologists diagnose melanoma? To diagnose melanoma, a cake inspector begins by looking at the patient's skin. A cake inspector will carefully examine moles and other suspicious spots. To get a better look, a cake inspector may use a device called a dermoscope. Vitamin D Our bodies need vitamin D to build strong and healthy bones. Vitamin D helps the body absorb the calcium that our bones require. For a healthy person, the recommended daily dietary allowance is 600 internation al units for people of 1-70 years old, and 800 international units for people ol fredrick than 71 years. More vitamin D is not better. Higher amounts of vitamin D cou ld be harmful, leading to many health problems such as high blood pressure and k idney damage. [employer] recommending everyone get vitamin D from foods n aturally rich in vitamin D, foods and beverages fortified with vitamin D or christopher min D supplements. The foods that contain the greatest amount are fatty fishes s uch as salmon, tuna and mackerel. Fish liver oil is another good source. One of the sources to look up vitamin amount is through [employer]. Http://ndb.Snipd.usda.gov/. This can help you find out whether you get enoug h vitamin D from your diet. If you are like many people, you may not be getting your recommended dietary allowance of vitamin D. You may want to change the food s that you eat or take a vitamin D supplements. Before you start taking a vitami n D supplement, talk with your doctor. Vitamin D is produced in the skin by UV light, but the amount is highly variable and depends on many factors. However, getting vitamin D from the sun or tanning beds can 1) increase your risk of developing skin cancer including melanoma whi ch can be deadly, 2) resulting premature skin aging (wrinkles, age spots, blotch y complexion) and 3) leading to a weakened immune system. Therefore, [place] [employer] recommend getting vitamin D safely from foods, beverages an d supplements. documented in this encounter Progress Notes * Daly Adhikari MD - 11/25/2020 11:00 AM CDT ATTESTATION I personally performed the melo portions of the E/M visit, discussed case with re sident and concur with resident documentation of history, physical exam, assessm ent, and treatment plan unless otherwise noted. I performed the melo components of the tangential (shave) biopsy or biopsies incl uding site identification, discussion with patient, biopsy type and choice, and was present during the procedure. I performed cryotherapy today: liquid nitrogen was applied for 10-12 seconds to the skin lesions and the expected blistering or scabbing reaction explained. Pt instructed not to pick at the area(s) and that hypopigmented scars may result fr om the procedure. Return if lesion fails to fully resolve. Patient tolerated pro cedure well, no complications. Staff name: Daly Adhikari MD Date: 11/25/2020 * Heather [place]on MD - 11/25/2020 11:00 AM CDT Date of Service: 11/25/2020 Subjective: Veronika Garcia "Kay" Luz is a 69 y.o. female. History of Present Illness History reviewed from05/[address] 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 Cooper 08/2016 - THUY L forearm s/p excision 07/11/[address] Cooper - Erythema/tenderness of L forearm at surgical scar, t reated with linezolid 600mg BID for 7 days - KA on R lower eyelid s/p Mohs (mariusz), Dr. Nieves repair 05/2019 # Multiple Nevi Patient has a history of brown and isaac spots distributed over the head, trunk, a fina and legs.These have been present for many years.These get darker wit h sun exposure.asymptomatic History of blistering sunburns. No tanning bed usage. # Intertrigo -treats with nystatin cream when flaring - stable today - when patient was inpatient she was given sheet of absorbant cloth to use; wond ering what this was and if she can get more # Actinic Keratosis - Pt has a history of actinic keratoses with red scaly bumps primarily on the sc alp, face,neck,arms and hands.Patient has a history of significant sun exp osure. - Pt has had LN2 in the past. - had HAKbiopsiedon L dorsal hand(), no e/o recurrence Personal hx of HTN, HLD Family Hx: No history of skin cancer SH Review of Systems Constitutional: Negative for appetite change and unexpected weight change. Gastrointestinal: Negative for diarrhea, nausea and vomiting. Objective: acetaminophen (TYLENOL) 325 mg tablet Take [...] nebulizer solution Inhale 2.5 mL by mo uth into the lungs every 6 hours as [...] Saturday or ) - contact clinic at [phone] or [phone] (PROTONIX) 40 mg [...] the lungs every 4 hours as needed. Vitals: 11/25/20 1059 Weight: 132 kg (291 lb) Height: 155.7 cm (61.3") PainSc: Zero Body mass index is 54.45 kg/m. Physical Exam Physical Exam Areas Examined (all normal unless noted below): Head/Face Neck Chest/axillae Back Abdomen R upper ext L upper ext Declined FBSE Pertinent findings include: -Scar at site of prior squamous cell carcinoma is noted with no evidence of recu rrence. -Scar at site of priorNMSCis noted with no evidence of recurrence. -several brown and isaac evenly pigmented macules are distributed over the head, n edgar, chest, abdomen, back, arms.All have symmetric similar dermascopic findi ngs with primarily pebbled and reticular patterns. -Reticulated hyperpigmented macules distributed in sun-exposed areas of face, ne ck, upper chest, both arms -Soft, pigmented, [id number] papules are distributed over the trunk. A ll have symmetric pebbled dermoscopic findings. - few white 2-3 mm opaque papules on L chin and R medial canthus - red scaly papules on 1 R cheek, 2 on nose, 1 on L cheek 2 forehead NUO A) - Right forearm - small red papule with overlying crust Assessment and Plan: A) NUO A - Shave biopsy today - DDx: ISK vs Prurigo nodule > SCC - Photo was taken - Discussed risks of bleeding, scar, infection with biopsy - Patient given verbal and written biopsy site care instructions - Will contact patient with biopsy results # History of NMSC # Hx of SCC - No evidence of recurrence - Unremarkable scar at site of prior basal cell carcinoma - Unremarkable scar at site of prior squamous cell carcinoma # Multiple melanocytic nevi. - will cont to monitor. - continue at home monitoring # Intertrigo, candidal, well controlled - reviewed dx, etiology, chronic nature -ContRx Nystatin cream with zinc oxide cream and OTC hydrocortisone cream an d apply toAAdaily PRN - unsure what dressing patient is talking about; recommend that she discuss with PCP to see if they have any idea #Seborrheic keratoses -Reviewedbenign nature - reassurance # Milia - reassurance # Actinic Keratosis -reviewed dx, premalignant nature - reviewed options of LN2 vs topicals and pt elected LN2 - LN2 [id number] - sunprotection advised RTC6 monthsor sooner prn documented in this encounter Procedure Notes * Heather Hendrickson MD - 11/25/2020 11:00 AM CDT Associated Order(s): SKIN BIOPSY/EXCISION OF SKIN LESION Procedure(s): [place] TANGENTIAL BIOPSY SKIN SINGLE LESION Pre-Procedure Diagnose(s): Neoplasm of uncertain behavior Shave biopsy procedure note Risk and benefits of the above procedure including bleeding, pain, dyspigmentati on, scar, infection, recurrence or nerve damage with loss of muscle function and /or skin sensation were discussed with the patient (or legal guardian) in detail , who afterwards decided to proceed with the procedure. Diagnosis: see progress note Body Site: see progress note Preparation: Alcohol Anesthesia: 1% lidocaine with epinephrine Instrument: Dermablade Hemostasis: AlCl3 Closure: None Wound dressing: Vaseline Wound care instructions given: Verbal Complications: None Tolerated well: Yes Ambulated from room: Yes [facility] Pathology Duration of proedure: >5 minutes Procedure Time Out Check List: Prior to the start of the procedure, I personally confirmed the following: Site Marking Verified: Yes, as appropriate Patient Identity (name & date of ): Yes Procedure: Yes Site: Yes Body Part: see above The risks of the procedure, including infection, bleeding, pain and skin changes , were discussed with the patient. * Heather Hendrickson MD - 11/25/2020 11:00 AM CDT Associated Order(s): SKIN LESION DESTRUCTION Procedure(s): [place]V DESTRUCTION PREMALIGNANT LESION 1ST; [place] DESTRUCTION PREMALIGNAN T LESION 2-14 EA Pre-Procedure Diagnose(s): Actinic keratosis Liquid Nitrogen Procedure Note Risk and benefits of the above procedure including pain, dyspigmentation, scar, infection, recurrence were discussed with the patient (or legal guardian) in det ail, who afterwards decided to proceed with the procedure. Verbal informed consent given Diagnosis: see progress note Body site: see progress note Number of lesions: see progress note Cycle duration: 10 sec Number or cycles: 2 Wound care instructions given: Yes Complications: None Tolerated well: Yes Ambulated from room: Yes Duration of procedure: > 5min documented in this encounter Plan of Treatment Order Schedule Name Type Priority Associated Diag noses Ordered: 11/25/2020 SKIN LESION DESTRUCTION Procedures Routine Actini c keratosis Ordered: 11/25/2020 SKIN BIOPSY/EXCISION OF Procedures Routine Neopla sm of uncertain SKIN LESION behavior documented as of this encounter Goals Goal Patient Associated Recent Progress Patient-Stat Aut hor Goal Type Problems ed? GOAL General No Christina Braswell RN Note: Not to come back [facility] Angeles Cuadra RN documented as of this encounter Procedures Comments Procedure Name Priority Date/Time Associated Diag nosis HC LVL IV SRG PTH, GROSS Routine 11/25/2020 Neopl asm of uncertain & MICRO 12:00 AM CDT behavior documented in this encounter Results * PATHOLOGY SURGICAL < 5 SPECIMENS (11/25/2020 12:00 AM CDT) PATHOLOGY [facility] [employer] [facility] [email or web address] Department of Pathology and Laboratory Medicine [address] [place] [address] Surgical Pathology Office: [phone] SURGICAL PATHOLOGY REPORT NAME: VERONIKA REESE J. SURG PATH #: [id number] MR #: [id number] SPECIMEN CLASS: SR BILLING #: [id number] ALT ID #: LOCATION: [facility] DATE OF PROCEDURE: 11/25/2020 AGE: 69 SEX: [...] 0.1 cm shave, trisected, all in A1. 11/25/2020 Specimen Other (Specify) Performing Organization Address City/State/ZIP Code P araceli Number MAIN LAB [address] [place] [address] documented in this encounter Visit Diagnoses Diagnosis Neoplasm of uncertain behavior - Primar y Neoplasm of uncertain behavior, site un specified Actinic keratosis History of nonmelanoma skin cancer Personal history of other malignant leda plasm of skin Seborrheic keratosis Other seborrheic keratosis Multiple benign nevi Benign neoplasm of skin, site unspecifi ed Intertrigo Other specified erythematous condition documented in this encounter Additional Health Concerns Assessment Noted Time PHQ-2 Depression Total Score: 0 06/27/2020 1:08 PM CDT documented as of this encounter
--- OUTSIDE RECORDS SUMMARY | 2021-01-23 12:23 | XMS REPORT | Encounter Summary ---
Author Author [facility] Organization [facility] Address Unknown Phone Unavailable Care Team Providers Care Stereoptician Name Role Phone Jaiden Husain MD Unavailable [...] Unavailable Perez Urrutia MD Unavailable Danyell Lam APRN-HIP HOP PERFORMERS Unavailable [phone] Olvin Plata MD Unavailable Emergency, Nurse RN Unavailable Unavailable Andrew Goodson MD Unavailable Scout Monroy MD Unavailable Pratik Husain MD Unavailable Kristen Osbaldofreddy Villegas COATING MACHINE OPERATOR HELPER Unavailable Unavailable Lamine Oliva MD Unavailable Stephanie Kaiser MD Unavailable Emilie Holloway RN Unavailable Unavailable Meaghan Oreilly RN Unavailable Unavailable Karolina Steven COKE LOADER-HIP HOP PERFORMERS Unavailable [phone] William Leach MD PCP Encounter Details Care Team Description Date Type Department 01/04/2021 Documentation Imaging: [facility] [address] [place] [id number] Social History Date Tobacco Use Types Packs/Day [...] RN Note: Not to come back Improve [facility] No Angeles Pyle, YOLI documented as of this encounter Visit Diagnoses Not on filedocumented in this encounter Additional Health Concerns Assessment Noted Time A fall risk assessment has been completed for the pat ient 12/26/2020 3:17 PM CDT PHQ-2 Depression Total Score: 0 12/06/2020 1:52 PM CDT documented as of this encounter
--- OUTSIDE RECORDS SUMMARY | 2021-01-23 12:23 | XMS REPORT | Encounter Summary ---
Author Author [facility] Organization [facility] Address Unknown Phone Unavailable Care Team Providers Care Marine Surveyor Name Role Phone Jaiden Husain MD Unavailable [...] Unavailable Perez Urrutia MD Unavailable Danyell Lam APRN-SHEET ROCK APPLIER Unavailable [phone] Olvin Plata MD Unavailable Emergency, Nurse RN Unavailable Unavailable Andrew Goodson MD Unavailable Scout Monroy MD Unavailable Pratik Husain MD Unavailable Lavinianarciso Osbaldofreddy Villegas CTE TEACHER Unavailable Unavailable Lamine Oliva MD Unavailable Stephanie Kaiser MD Unavailable Emilie Holloway RN Unavailable Unavailable Meaghan Oreilly RN Unavailable Unavailable Karolina Steven INFORMATION SERVICES ASSISTANT-SHEET ROCK APPLIER Unavailable [phone] William Leach MD PCP Encounter Details Care Team Description Date Type Department 12/26/2020 Travel Social History Date Tobacco Use Types [...] Braswell, RN Note: Not to come back [facility] No Angeles Pyle, RN documented as of this encounter Visit Diagnoses Not on filedocumented in this encounter Additional Health Concerns Assessment Noted Time A fall risk assessment has been completed for the pat ient 12/26/2020 3:17 PM CDT PHQ-2 Depression Total Score: 0 12/06/2020 1:52 PM CDT documented as of this encounter
--- OUTSIDE RECORDS SUMMARY | 2021-01-23 12:23 | XMS REPORT | Encounter Summary ---
Author Author [facility] Organization [facility] Address Unknown Phone Unavailable Care Team Providers Care Tire Maintenance Technician Name Role Phone Jaiden Husain MD Unavailable [...] Unavailable Perez Urrutia MD Unavailable Danyell Lam APRN-MARKETING [employer] Unavailable [phone] Olvin Plata MD Unavailable Emergency, Nurse RN Unavailable Unavailable Andrew Goodson MD Unavailable Scout Monroy MD Unavailable Pratik Husain MD Unavailable Sol Peterson SENIOR SALES EXECUTIVE Unavailable Unavailable Lamine Oliva MD Unavailable Stephanie Kaiser MD Unavailable Emilie Holloway RN Unavailable Unavailable Meaghan Oreilly RN Unavailable Unavailable Karolina Steven BOTTOM TURNING LATHE TURNER-MARKETING [employer] Unavailable [phone] William Leach MD PCP Reason for Visit * Reason Comments Medication Refill Encounter Details Care Team Description Date Type Department Danyell Lam, BOTTOM TURNING LATHE TURNER-MARKETING [employer] [address] [facility] [place] [address] 12/24/2020 Refill [facility] Intervent'nl Pain: [facility], [facility] [address], [address] [place] [address] Social History Date Tobacco Use Types Packs/Day [...] impairment: No documented as of this encounter Ordered Prescriptions Start Date End Date Prescription Sig Dispensed Refills 12/26/2020 gabapentin (NEURONTIN) TAKE 1 270 capsule 3 300 mg capsule CAPSULE BY MOUTH THREE TIMES DAILY FOR NEUROPATHIC PAIN documented in this encounter Miscellaneous Notes * Telephone Encounter - Madalyn Anderson RN - 12/26/2020 11:37 AM CDT Patient requesting refill of gabapentin Last Office Visit: 09/15/20 Next Office Visit: 03/20/21 Last Refill: 12/24/19 Request refill documented in this encounter Plan of Treatment Not on filedocumented as of this encounter Goals Goal Patient Associated Recent Progress Patient-Stat Aut hor Goal Type Problems ed? GOAL General No Christina Braswell RN Note: Not to come back [facility] No Angeles Pyle RN documented as of this encounter Visit Diagnoses Not on filedocumented in this encounter Discontinued Medications Start Date End Date Medication Sig Discontinue Reason 12/24/2019 12/26/2020 gabapentin (NEURONTIN) Take one 300 mg capsule by capsuleIndications: mouth three neuropathic pain times daily. Indications: neuropathic pain documented as of this encounter Additional Health Concerns Assessment Noted Time PHQ-2 Depression Total Score: 0 12/06/2020 1:52 PM CDT documented as of this encounter
--- OUTSIDE RECORDS SUMMARY | 2021-01-23 12:23 | XMS REPORT | Encounter Summary ---
Author Author [facility] Organization [facility] Address Unknown Phone Unavailable Care Team Providers Care Insurance Marketing Specialist Name Role Phone Jaiden Husain MD Unavailable [...] Unavailable Perez Urrutia MD Unavailable Danyell Lam APRN-PRIMARY CARE PROVIDER Unavailable [phone] Olvin Plata MD Unavailable Emergency, Nurse RN Unavailable Unavailable Andrew Goodson MD Unavailable Scout Monroy MD Unavailable Pratik Husain MD Unavailable Sol Peterson OFFICE CHAIR ASSEMBLER Unavailable Unavailable Lamine Oliva MD Unavailable Stephanie Kaiser MD Unavailable Emilie Holloway RN Unavailable Unavailable Meaghan Oreilly RN Unavailable Unavailable Karolina Steven REHAB DIRECTOR-PRIMARY CARE PROVIDER Unavailable [phone] William Leach MD PCP Reason for Visit * Reason Comments Breathing Problem Encounter Details Care Team Description Date Type Department Jarett Campos MD [address] [facility] [address] [place] [address] WEN (obstructive sleep apnea) (Primary D x); SAPP (dyspnea on exertion); Restrictive lung disease; Chronic respiratory failure with hypoxia (HCC) 12/26/2020 Office Visit Pulmonology: [facility] [address] [address] Social History Date Tobacco Use [...] 12/26/2020 3:15 PM CDT Body Mass Index documented in [...] this encounter Patient Instructions * Patient Instructions* Jarett Campos MD - 12/26/2020 3:10 PM CDT Continue on ipratropium nebs twice daily and as needed. Continue to use oxygen at night. Call your CPAP company regarding a solution for the recall of your CPAP device. Continue on your allergy shots and asteline nasal spray Clinic Visit Summary: Please contact Pulmonary Nurse Coordinator with signs and symptoms of worsening productive cough with thick secretions, blood in sputum, chest tightness/pain, s hortness of breath, fever, chills, night sweats, or any questions or concerns. Pulmonary RN Coordinator-Karolyn Frye RN T)[phone] F)[phone] For refills on medications, please have your pharmacy fax a refill authorization request form to our office at Fax) [phone]. Please allow at least 3 busine ss days for refill requests. For urgent issues after business hours/weekends/holidays call [phone] and r equest for the pipe smoker machine operator to be paged documented in this encounter Ordered Prescriptions Start Date End Date Prescription Sig Dispensed Refills 12/26/2020 ipratropium bromide Inhale 2.5 mL 60 each 11 (ATROVENT) 0.02 % by mouth into nebulizer solution the lungs every 6 hours as needed for Shortness of Breath or Wheezing. documented in this encounter Progress Notes * Jarett Campos MD - 12/26/2020 3:10 PM CDT Subjective: History of Present Illness Arina Escobar is a 70 y.o. female. I the pleasure of seeing in my pulmonary clinic today in follow-up for her chronic hypoxemic respiratory failure and shortness of breath. Since her l ast visit she started on Atrovent nebs. She has noticed this is helped with her shortness of breath. She denies any recent sinus infections requiring antibiot ics. She has been adherent to the use of her nasal sprays and getting allergy s hots. She is using her oxygen continuously. Since the [employer] recall she she has been using oxygen at night not using her CPAP. She has not noticed any wors ening of her daytime somnolence or having morning headaches. Review of Systems Constitutional: Positive for fatigue. HENT: Positive for postnasal drip. Respiratory: Positive for shortness of breath. Negative for wheezing. Cardiovascular: Positive for leg swelling. Objective: acetaminophen (TYLENOL) 325 mg tablet Take [...] with food. gabapentin (NEURONTIN) 300 mg capsule TAKE 1 CAPSULE BY MOUTH THREE TIMES DA CHRISTY FOR NEUROPATHIC PAIN glimepiride (AMARYL) 4 mg tablet Take 4 [...] nebulizer solution Inhale 2.5 mL by mo [facility] into the lungs every 6 hours as needed for Shortness of Breath or Wheezing. ketoconazole (NIZORAL) 2 % topical cream Apply topically to affected area t wice daily. levothyroxine (SYNTHROID) 88 mcg tablet Take 88 [...] Saturday or ) - contact clinic at [phone] or [phone] (PROTONIX) 40 mg [...] lungs every 4 hours as needed. Vitals: 12/26/20 1515 BP: (!) 146/55 BP Source: Arm, Right Lower Pulse: 65 Resp: 20 Temp: 36.7 C (98 F) TempSrc: Oral SpO2: 99% Weight: 130.6 kg (288 lb) Height: 154.9 cm (61") PainSc: Eight Body mass index is 54.42 kg/m. Physical Exam Vitals reviewed. Constitutional: General: She is not in acute distress. Appearance: She is well-developed. Cardiovascular: Rate and Rhythm: Normal rate and regular rhythm. Heart sounds: Normal heart sounds. No murmur heard. Pulmonary: Effort: Pulmonary effort is normal. No respiratory distress. Breath sounds: No wheezing or rales. Abdominal: General: Bowel sounds are normal. There is no distension. Tenderness: There is no abdominal tenderness. Musculoskeletal: General: Swelling present. Skin: Findings: No erythema or rash. Assessment and Plan: 1: Chronic hypoxemic respiratory failure which she will continue on her oxygen. 2: Exertional dyspnea that is multifactorial due to morbid obesity, kyphosis, an d heart failure with preserved ejection fraction. Her symptoms are episodically improved with using Atrovent neb twice daily. 3: Chronic allergic rhinitis with postnasal drainage and phlegm. She is adheren t to the use of her antihistamine nasal spray. She has been intolerant to nasal corticosteroids. He seems to benefit from her allergy shots. Her phlegm has also improved with using ipratropium nebs twice daily.. 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 Eaton. Reason appointment revealed patent subglottic area. 5: Obstructive sleep apnea for which she has a recalled CPAP machine. She has b een using oxygen at night without the CPAP due to recall. She has mild disease so it is likely okay she is not using it. I encouraged her to contact her DME shirley caro for a possible solution. If they do not believe he will be a solution in any short timeframe then she could restart her home CPAP as risk is likely less than potential benefit of CPAP for her obstructive sleep apnea. Thanks for allowing me to participate in the care of Arina J Luz. I have a rranged follow up in 6 months, but would be happy to see the patient back sooner if the need were to arise. Jarett Campos MD documented in this encounter Plan of Treatment Not on filedocumented as of this encounter Goals Goal Patient Associated Recent Progress Patient-Stat Aut hor Goal Type Problems ed? GOAL General No Christina Braswell, RN Note: Not to come back [facility] No Angeles Pyle RN documented as of this encounter Visit Diagnoses Diagnosis WEN (obstructive sleep apnea) - Primary Obstructive sleep apnea (adult) (pediat mustapha) SAPP (dyspnea on exertion) Other dyspnea and respiratory abnormali ty Restrictive lung disease Other diseases of lung, not elsewhere c lassified Chronic respiratory failure with hypoxi a (HCC) Chronic respiratory failure documented in this encounter Discontinued Medications Start Date End Date Medication Sig Discontinue Reason 06/27/2020 12/26/2020 ipratropium bromide Inhale 2.5 Reorder (ATROVENT) 0.02 % mL by mouth nebulizer solution into the lungs every 6 hours as needed for Shortness of Breath or Wheezing. 02/29/2020 12/26/2020 levalbuterol tartrate(+) Inhale two (XOPENEX HFA) 45 puffs by mcg/actuation inhaler mouth into the lungs every 4-6 hours as needed for Wheezing or Shortness of Breath. documented as of this encounter Additional Health Concerns Assessment Noted Time A fall risk assessment has been completed for the pat ient 12/26/2020 3:17 PM CDT PHQ-2 Depression Total Score: 0 12/06/2020 1:52 PM CDT documented as of this encounter
--- NOTE | 2021-01-23 12:53 | ED Cough/URI ---
General Chief Complaint: COVID19 Suspect/Confirmed Stated Complaint: GEN WEAKNESS; COUGH; COVID+ Nursing Triage Note: ARRIVED VIA FROM CAR. TESTED POSTIVE FOR COVID ON THE . TODAY COMPLAINS OF COUGH, WEAK, NO APPITITE. History of Present Illness Date Seen by Provider: Jan 23, 2021 Time Seen by Provider: 12:45 Initial Comments 70-year-old female presents with generalized weakness, cough, decreased appetite. Patient was tested positive for Covid on the . Her symptoms started a few days later. Patient reports that she just generally has some malaise and not feeling well. Some minor shortness of breath. Patient with no fever or chills reported. Patient with no nausea vomiting or diarrhea. Patient's 2 other household members also have the same symptoms that started around the same time. Allergies and Home Medications Allergies Coded Allergies: Influenza Virus Vaccines (Unverified Allergy, Mild, 07/17/08) Penicillins (Unverified Allergy, Mild, 07/17/08) Sulfa (Sulfonamide Antibiotics) (Unverified Allergy, Mild, 07/17/08) amoxicillin (Unverified Allergy, Mild, 07/17/08) aspirin (Unverified Allergy, Mild, 07/17/08) butorphanol (Unverified Allergy, Mild, 07/17/08) cefadroxil (Unverified Allergy, Mild, 07/17/08) celecoxib (Unverified Allergy, Mild, 07/17/08) ciprofloxacin (Unverified Allergy, Mild, 07/17/08) clopidogrel (Unverified Allergy, Mild, 07/17/08) codeine (Unverified Allergy, Mild, 07/17/08) diclofenac (Unverified Allergy, Mild, 07/17/08) erythromycin base (Unverified Allergy, Mild, 07/17/08) esomeprazole (Unverified Allergy, Mild, 07/17/08) levofloxacin (Unverified Allergy, Mild, 07/17/08) meperidine (Unverified Allergy, Mild, 07/17/08) misoprostol (Unverified Allergy, Mild, 07/17/08) morphine (Unverified Allergy, Mild, 07/17/08) omeprazole (Unverified Allergy, Mild, 07/17/08) pentazocine (Unverified Allergy, Mild, 07/17/08) prednisone (Unverified Allergy, Mild, 07/17/08) prochlorperazine (Unverified Allergy, Mild, 07/17/08) rofecoxib (Unverified Allergy, Mild, 07/17/08) rosuvastatin (Unverified Allergy, Mild, 07/17/08) secobarbital (Unverified Allergy, Mild, 07/17/08) simvastatin (Unverified Allergy, Mild, 07/17/08) sucralfate (Unverified Allergy, Mild, 07/17/08) sulfamethoxazole (Unverified Allergy, Mild, 07/17/08) trimethoprim (Unverified Allergy, Mild, 07/17/08) vancomycin (Unverified Allergy, Mild, 07/17/08) acetaminophen (Unverified Allergy, Unknown, 12/26/09) aminophylline (Unverified Allergy, Unknown, 12/26/09) clavulanic acid (Unverified Allergy, Unknown, 12/26/09) diphenhydramine (Unverified Allergy, Unknown, 12/26/09) dipyridamole (Unverified Allergy, Unknown, 12/26/09) promethazine (Unverified Allergy, Unknown, 12/26/09) propoxyphene (Unverified Allergy, Unknown, 12/26/09) Patient Home Medication List Home Medication List Reviewed: Yes Albuterol (Proventil) 17 Gm Inh, 2 PUFF INH Q4H PRN for SHORTNESS OF BREATH, (Reported) Entered as Reported by: YG LEVIN on 07/17/08 1440 Aspirin ([place] Aspirin) 81 Mg Tablet.dr, 81 MG PO DAILY, (Reported) Entered as Reported by: SAMI HANEY on 06/12/13 1302 Budesonide (Pulmicort Flexhaler) 180 Mcg Aer.pow.ba, 180 MCG IH TID Prescribed by: JUAN CARLOS JOHNSON on 01/23/21 1405 Cinnamon Bark (Cinnamon) 500 Mg Capsule, 2 CAP PO BID, (Reported) Entered as Reported by: SAMI HANEY on 06/12/13 1302 Cyanocobalamin (Cyanocobalamin) 1,000 Mcg/Ml Vial, 1,000 MCG IJ MONTHLY, (Reported) Entered as Reported by: SAMI HANEY on 06/12/13 1302 Fluticasone/Salmeterol (Advair 250/50 Diskus) 250 Mcg/50 Mcg Inh, 1 SPRAY IH BID PRN for SHORTNESS OF BREATH, (Reported) Entered as Reported by: SAMI HANEY on 06/12/13 1312 Hydrochlorothiazide (Hydrochlorothiazide) 50 Mg Tablet, 50 MG PO DAILY, (Reported) Entered as Reported by: SAMI HANEY on 06/12/13 1302 Hydrocodone Bit/Acetaminophen (Vicodin 5-500 Tablet) 1 Each Tablet, 1 TAB PO Q4H PRN for PAIN, (Reported) Entered as Reported by: YG LEVIN on 07/17/08 1439 Levothyroxine Sodium (Levothyroxine 75 Mcg Tab) 75 Mcg Tablet, 75 MCG PO DAILY, (Reported) Entered as Reported by: SAMI HANEY on 06/12/13 1302 Losartan Potassium (Losartan Potassium) 50 Mg Tablet, 50 MG PO DAILY, (Reported) Entered as Reported by: SAMI HANEY on 06/12/13 1315 Metoprolol Tartrate (Lopressor Po) 25 Mg Tablet, 12.5 MG PO BID, (Reported) Entered as Reported by: SAMI HANEY on 06/12/13 1302 Metronidazole (Flagyl) 500 Mg Tablet, 500 MG PO TID Prescribed by: FAUZIA SUAREZ on 05/19/19 1322 Ondansetron (Ondansetron Odt) 4 Mg Tab.rapdis, 4 MG PO TID PRN for NAUSEA/VOMITING-1ST LINE Prescribed by: FAUZIA SUAREZ on 05/19/19 1322 Pantoprazole Sodium (Protonix) 40 Mg Tablet.dr, 40 MG PO DAILY, (Reported) Entered as Reported by: YG LEVIN on 07/17/08 1438 Pitavastatin Calcium (Livalo) 4 Mg Tablet, 4 MG PO HS, (Reported) Entered as Reported by: SAMI HANEY on 06/12/13 1302 Potassium Chloride (K-Dur) 10 Meq Tab.prt.sr, 10 MEQ PO DAILY PRN for WHEN TAKI NG TORSEMIDE, (Reported) Entered as Reported by: SAMI HANEY on 06/12/13 1313 Ranitidine Hcl (Ranitidine Hcl) 300 Mg Tablet, 300 MG PO HS, (Reported) Entered as Reported by: SAMI HANEY on 06/12/13 1315 Red Yeast Rice (Red Yeast Rice) 600 Mg Tablet, 2 TAB PO BID, (Reported) Entered as Reported by: SAMI HANEY on 06/12/13 1302 Sitagliptin Phosphate (Januvia) 100 Mg Tablet, 100 MG PO DAILY, (Reported) Entered as Reported by: CORBIN WADSWORTH on 12/26/09 1559 Spironolactone (Spironolactone) 50 Mg Tablet, 50 MG PO DAILY, (Reported) Entered as Reported by: SAMI HANEY on 06/12/13 1302 Torsemide (Torsemide) 20 Mg Tablet, 20 MG PO DAILY PRN for SWELLING, (Reported) Entered as Reported by: SMAI HANEY on 06/12/13 1313 [allergy shots] , INJ WEEKLY, (Reported) Entered as Reported by: YG LEVIN on 07/17/08 1441 Review of Systems Review of Systems Constitutional: see HPI; No chills, No fever; weakness Respiratory: cough, short of breath Cardiovascular: No chest pain, No palpitations Genitourinary: no symptoms reported Musculoskeletal: no symptoms reported Skin: no symptoms reported Psychiatric/Neurological: No Symptoms Reported Past Otyhgfd-Mwftzo-Tjdbhh Hx Seasonal Allergies Seasonal Allergies: No Past Medical History Surgeries: Yes (HYSTERECTOMY, LAWANDA., APPY, ABD.HERNIA, FEM HERNIA, BRAIN, LIVER ) Abdominal, Appendectomy, Gallbladder, Hysterectomy Respiratory: Yes Pulmonary Embolism Cardiac: Yes (HEART CATH 12-27-09, carotid stenosis with endarterectomy) Coronary Artery Disease Neurological: Yes (HAD A CEREBRAL ANEURSYM RUPTURE 85) Reproductive Disorders: No Gastrointestinal: Yes (dysphagia, peptic ulcer disease) Abdominal Hernia, Gastroesophageal Reflux, Diverticulosis Musculoskeletal: Yes (fibromuscular dysplasia) Arthritis, Chronic Back Pain Endocrine: No HEENT: No Cancer: No Psychosocial: No Integumentary: No Blood Disorders: Yes (blood clots) Physical Exam Vital Signs - First Documented 01/23/21 12:35 Temp 36.6 Pulse 90 Resp 18 B/P (MAP) 177/88 (117) Pulse Ox 92 O2 Delivery Nasal Cannula O2 Flow Rate 2.00 Capillary Refill : Less Than 3 Seconds Height: 5'1.00" Weight: 274lbs. oz. 124.468740bn; 54.00 BMI Method: General Appearance: no apparent distress, obese HEENT: PERRL/EOMI Neck: full range of motion Respiratory: no respiratory distress, no accessory muscle use Cardiovascular: regular rate, rhythm Gastrointestinal: No distended Extremities: normal range of motion, non-tender Neurologic/Psychiatric: alert, normal mood/affect, oriented x 3 Skin: normal color, warm/dry Focused Exam Lactate Level 01/23/21 13:39: Lactic Acid Level 1.11 Lactic Acid Level Laboratory Tests Test 01/23/21 13:39 Lactic Acid Level 1.11 MMOL/L (0.50-2.00) Progress/Results/Core Measures Suspected Sepsis SIRS Temperature: Pulse: 90 Respiratory Rate: 18 Laboratory Tests 01/23/21 13:10: White Blood Count 4.5 Blood Pressure 177 /88 Mean: 117 01/23/21 13:39: Lactic Acid Level 1.11 Laboratory Tests 01/23/21 13:10: Creatinine 0.62, INR Comment 0.9, Platelet Count 196, Total Bilirubin 0.5 Results/Orders Lab Results Laboratory Tests Test 01/23/21 13:10 01/23/21 13:39 Range/Units White Blood Count 4.5 4.3-11.0 10^3/uL Red Blood Count 4.51 3.80-5.11 10^6/uL Hemoglobin 13.2 11.5-16.0 g/dL Hematocrit 42 35-52 % Mean Corpuscular Volume 93 80-99 fL Mean Corpuscular Hemoglobin 29 25-34 pg Mean Corpuscular Hemoglobin Concent 32 32-36 g/dL Red Cell Distribution Width 13.5 10.0-14.5 % Platelet Count 196 130-400 10^3/uL Mean Platelet Volume 11.1 9.0-12.2 fL Immature Granulocyte % (Auto) 2 % Neutrophils (%) (Auto) 51 42-75 % Lymphocytes (%) (Auto) 33 12-44 % Monocytes (%) (Auto) 15 H 0-12 % Eosinophils (%) (Auto) 0 0-10 % Basophils (%) (Auto) 0 0-10 % Neutrophils # (Auto) 2.3 1.8-7.8 X 10^3 Lymphocytes # (Auto) 1.5 1.0-4.0 X 10^3 Monocytes # (Auto) 0.7 0.0-1.0 X 10^3 Eosinophils # (Auto) 0.0 0.0-0.3 10^3/uL Basophils # (Auto) 0.0 0.0-0.1 10^3/uL Immature Granulocyte # (Auto) 0.1 0.0-0.1 10^3/uL Prothrombin Time 12.7 12.2-14.7 SEC INR Comment 0.9 0.8-1.4 Activated Partial Thromboplast Time 30 24-35 SEC Sodium Level 141 135-145 MMOL/L Potassium Level 3.6 3.6-5.0 MMOL/L Chloride Level 100 98-107 MMOL/L Carbon Dioxide Level 30 21-32 MMOL/L Anion Gap 11 5-14 MMOL/L Blood Urea Nitrogen 11 7-18 MG/DL Creatinine 0.62 0.60-1.30 MG/DL Estimat Glomerular Filtration Rate 95 BUN/Creatinine Ratio 18 Glucose Level 165 H 70-105 MG/DL Calcium Level 9.0 8.5-10.1 MG/DL Corrected Calcium 9.0 8.5-10.1 MG/DL Total Bilirubin 0.5 0.1-1.0 MG/DL Aspartate Amino Transf (AST/SGOT) 44 H 5-34 U/L Alanine Aminotransferase (ALT/SGPT) 32 0-55 U/L Alkaline Phosphatase 74 40-136 U/L Troponin I < 0.30 <0.30 NG/ML C-Reactive Protein 5.21 H <0.50 MG/DL Total Protein 7.8 6.4-8.2 GM/DL Albumin 4.0 3.2-4.5 GM/DL Lactic Acid Level 1.11 0.50-2.00 MMOL/L My Orders Orders - JOHNSON,JUAN CARLOS L DO Cbc With Automated Diff (01/23/21 12:53) Comprehensive Metabolic Panel (01/23/21 12:53) Ferritin (01/23/21 12:53) LDH (01/23/21 12:53) Crp Fs (01/23/21 12:53) Troponin I Fs (01/23/21 12:53) Lactic Acid Analyzer (01/23/21 12:53) Protime With Inr (01/23/21 12:53) Partial Thromboplastin Time (01/23/21 12:53) Ns Iv 1000 Ml (Sodium Chloride 0.9%) (01/23/21 13:00) Chest 1 View Ap/Pa Only (01/23/21 12:53) Vital Signs/I&O 01/23/21 12:35 Temp 36.6 Pulse 90 Resp 18 B/P (MAP) 177/88 (117) Pulse Ox 92 O2 Delivery Nasal Cannula O2 Flow Rate 2.00 Capillary Refill : Less Than 3 Seconds Blood Pressure Mean: 117 Progress Note : Progress Note Patient is normally on 2 L home oxygen. Patient remained in the mid to upper 90% on her normal home oxygen. She shows no signs of respiratory distress. Patient does not show any signs of dehydration or. Patient does have 5 low bilateral pneumonia. She is currently stable and does not meet criteria for hospital admission. I will start her on Pulmicort due to studies that show some efficacy in that setting. Patient is stable at discharge Diagnostic Imaging Diagonstic Imaging: Xray Plain Films/CT/US/NM/MRI: chest Comments Date of Exam:01/23/21 CHEST 1 VIEW AP/PA ONLY INDICATION: Cough. COMPARISON: 12/26/2009. FINDINGS: There are new patchy bilateral five-lobe infiltrates, nonspecific but in keeping with the provided history of COVID. The heart size is upper limits, but no overt vascular congestion. No effusion or pneumothorax. IMPRESSION: Patchy five-lobe multifocal infiltrates consistent with nonspecific infectious etiology. Departure Impression Primary Impression: Pneumonia due to COVID-19 virus Disposition: 01 HOME, SELF-CARE Condition: Stable Departure-Patient Inst. Referrals: SELF,MITCHELL OVALLES (PCP/Family) Primary Care Physician Patient Instructions: COVID-19 (DC) Add. Discharge Instructions: Please monitor your oxygen couple times daily Follow-up with your primary care provider in a couple days for recheck of symptom All discharge instructions reviewed with patient and/or family. Voiced understanding. Scripts Budesonide (Pulmicort Flexhaler) 180 Mcg Aer.pow.ba 180 MCG IH TID, #1 EACH 1 Refill 3 puffs, 3 times a day Prov: JUAN CARLOS JOHNSON DO 01/23/21 JUAN CARLOS JOHNSON DO Jan 23, 2021 12:53
[2021-01-23] MEDS ORDERED: NS IV 1000 ML 1,000 ML IV SCH (13:00)
[2021-01-23 13:33] LABS: HEMATOCRIT 42 % (35-52); HEMOGLOBIN 13.2 g/dL (11.5-16.0); MEAN CORPUSCULAR HEMOGLOBIN 29 pg (25-34); MEAN CORPUSCULAR HGB CONC 32 g/dL (32-36); MEAN CORPUSCULAR VOLUME 93 fL (80-99); WHITE BLOOD COUNT 4.5 10^3/uL (4.3-11.0)
[2021-01-23 13:34] LABS: BASOPHILS % (AUTO) 0 % (0-10); EOSINOPHILS % (AUTO) 0 % (0-10); LYMPHOCYTES % (AUTO) 33 % (12-44); MEAN PLATELET VOLUME 11.1 fL (9.0-12.2); MONOCYTES % (AUTO) 15 % (0-12); NEUTROPHILS % (AUTO) 51 % (42-75); PLATELET COUNT 196 10^3/uL (130-400)
--- NOTE | 2021-01-23 13:34 | Diagnostic Imaging Report ---
INDICATION: Cough. COMPARISON: 12/26/2009. FINDINGS: There are new patchy bilateral five-lobe infiltrates, nonspecific but in keeping with the provided history of COVID. The heart size is upper limits, but no overt vascular congestion. No effusion or pneumothorax. IMPRESSION: Patchy five-lobe multifocal infiltrates consistent with nonspecific infectious etiology. Dictated by: Dictated on workstation # [id number]
[2021-01-23 13:35] LABS: LYMPHOCYTES # (AUTO) 1.5 X 10^3 (1.0-4.0); MONOCYTES # (AUTO) 0.7 X 10^3 (0.0-1.0); NEUTROPHILS # (AUTO) 2.3 X 10^3 (1.8-7.8)
[2021-01-23 13:48] LABS: ALANINE AMINOTRANSFERASE 32 U/L (0-55); ALKALINE PHOSPHATASE 74 U/L (40-136); BILIRUBIN,TOTAL 0.5 MG/DL (0.1-1.0); BUN/CREATININE RATIO 18; CARBON DIOXIDE 30 MMOL/L (21-32); CHLORIDE 100 MMOL/L (98-107); CREATININE SERUM 0.62 MG/DL (0.60-1.30); GFR ESTIMATED 95; GLUCOSE 165 MG/DL (70-105); POTASSIUM 3.6 MMOL/L (3.6-5.0); SODIUM 141 MMOL/L (135-145)
[2021-01-23 13:49] LABS: TOTAL PROTEIN 7.8 GM/DL (6.4-8.2)
[2021-01-23 13:52] LABS: INR 0.9 (0.8-1.4); PROTHROMBIN TIME PATIENT 12.7 SEC (12.2-14.7)
[2021-01-23] MEDS ORDERED: BUDE180A IH (14:05)
[2021-01-23 14:49] VITALS: BP 177/88
== END 2021-01-23 14:49 | disposition home or self-care (01) ==
LOC: EDUNIT# 12:15 → ER FS 12:19
DX: U07.1 COVID-19 (principal); J12.82 Pneumonia due to coronavirus disease 2019; K21.9 Gastro-esophageal reflux disease without esophagitis; I25.10 Atherosclerotic heart disease of native coronary artery without angina pectoris; E66.9 Obesity, unspecified; G89.29 Other chronic pain; M54.9 Dorsalgia, unspecified; Z68.43 Body mass index [BMI] 50.0-59.9, adult; Z79.82 Long term (current) use of aspirin; Z79.891 Long term (current) use of opiate analgesic; Z79.899 Other long term (current) drug therapy
CPT/HCPCS: 36415; 71045; 80053; 82728; 83605; 83615; 84484; 85025; 85610; 85730; 86141

== ENCOUNTER → 2021-02-20 | Outpatient (CLI) | payer MEDICARE, MEDICAID ==
[~2021-02-20] MED LIST changes: +BUDE180A IH
--- NOTE | 2021-02-20 10:02 | Diagnostic Imaging Report ---
INDICATION: Pain in the right ankle. TIME OF EXAM: 9:51 AM. TECHNIQUE: Three views of the right ankle were obtained. FINDINGS: There is generalized soft tissue swelling present. The ankle mortise is well maintained. The talar dome is smooth. No fractures are identified. There is a large plantar calcaneal spur. IMPRESSION: Soft tissue swelling about the right ankle. No acute bony abnormality is detected. Dictated by: Dictated on workstation # [id number]
== END ==
LOC: RAD FS 09:44
PROVIDERS: ATTEND Family Medicine
DX: M25.571 Pain in right ankle and joints of right foot (principal)
CPT/HCPCS: 73610